=== PATIENT | male | born 1955 | race Caucasian/White ===

== ENCOUNTER 2020-08-01 14:19 | Inpatient (IN) | payer OTHER ==
[2020-08-01] MEDS ORDERED: ACETAMINOPHEN TAB 500 MG TAB PO STA (14:33)
[2020-08-01] MEDS ORDERED: SODIUM CHLORIDE 0.9% 500 ML 500 ML IV STA (14:35)
[2020-08-01] MEDS ORDERED: ONDANSETRON 4 MG/2 ML VIAL IVP STA (14:35)
--- NOTE | 2020-08-01 15:00 | ED ---
General Adult HPI - General Source: EMS Mode of arrival: EMS <Rachel Pfeiffer - Last Filed: 08/01/20 19:20> <ErikApple sal Josh - Last Filed: 08/03/20 14:55> - General Chief complaint: Syncope Stated complaint: Syncope Time Seen by Provider: 08/01/20 14:25 - History of Present Illness Initial comments: Patient is a 64-year-old male with history of hypertension, recent lung tumor removal, presenting to the emergency department via EMS after having a syncopal episode at home. Patient states he was laying in bed and got up to use the rest room when he had a syncopal episode. Patient is unsure if he hit his head or not. He is not on blood thinners. Patient states his family then helped into the restroom and back in his room and they called EMS. Patient was able to ambulate to the EMS stretcher. Patient is complaining of some nausea, no further complaints at this time. He denies having a headache, no chest pain, no abdominal pain. He does feel little short of breath. Patient states 2 weeks ago he had surgery at the [facility] to remove a right lung tumor. He states he has been recovering well from this just very fatigued. He denies feeling feverish or having any chills, no vomiting or diarrhea. He states his sister does have Covid but he has been staying away from her however they do live in the same house. Patient states he's also been dealing with low blood pressure as he is on blood pressure medication for hypertension but it's been dropping his blood pressure too low. He states he does not eat very much and does not drink a lot of water here. He denies any alcohol use. He states he was a former smoker. He has no further complaints at this time. Upon arrival to the ER, he is febrile to 100.2, blood pressure is 91/74, 93% on room air, pulse is 70. (Rachel Pfeiffer) - Related Data Home Medications Medication Instructions Recorded Confirmed Aspirin EC [Ecotrin Low Dose] 81 mg PO DAILY 08/01/20 08/01/20 Atorvastatin Calcium [Lipitor] 40 mg PO HS 08/01/20 08/01/20 Carvedilol [Coreg] 25 mg PO BID 08/01/20 08/01/20 Multivitamins, Thera [Multivitamin 1 tab PO DAILY 08/01/20 08/01/20 (formulary)] Omeprazole 40 mg PO BID PRN 08/01/20 08/01/20 amLODIPine [Norvasc] 10 mg PO DAILY 08/01/20 08/01/20 lisinopriL 40 mg PO HS 08/01/20 08/01/20 Allergies Allergy/AdvReac Type Severity Reaction Status Date / Time No Known Allergies Allergy Verified 08/01/20 16:40 Review of Systems ROS Other: All systems not noted in ROS Statement are negative. <Rachel Pfeiffer - Last Filed: 08/01/20 19:20> ROS Other: All systems not noted in ROS Statement are negative. <Apple Jarrell - Last Filed: 08/03/20 14:55> ROS Statement: Those systems with pertinent positive or pertinent negative responses have been documented in the HPI. Past Medical History Past Medical History: Hypertension Additional Past Medical History / Comment(s): lung cancer, History of Any Multi-Drug Resistant Organisms: None Reported Additional Past Surgical History / Comment(s): right lung cancer tumor removed, right shoulder surgery, Past Psychological History: No Psychological Hx Reported Smoking Status: Former smoker Past Alcohol Use History: None Reported Past Drug Use History: None Reported <Rachel Pfeiffer - Last Filed: 08/01/20 19:20> General Exam <Rachel Pfeiffer - Last Filed: 08/01/20 19:20> - General Exam Comments Initial Comments: GENERAL: Patient appears slightly disheveled, nontoxic and in no acute distress. HEAD: Atraumatic, normocephalic. There is no hematomas. No signs of basal skull fracture. EYES: Pupils equal round and reactive to light, extraocular movements intact, sclera anicteric, conjunctiva are normal. Eyelids were unremarkable. ENT: TMs normal, nares patent, oropharynx clear without exudates. Moist mucous membranes. NECK: Normal range of motion, supple without lymphadenopathy or JVD. LUNGS: Unlabored respirations. Breath sounds clear to auscultation bilaterally and equal. No wheezes rales or rhonchi. HEART: Regular rate and rhythm without murmurs, rubs or gallops. ABDOMEN: Soft, nontender, normoactive bowel sounds. No guarding, no rebound. No masses appreciated. : Deferred MUSCULOSKELETAL: Normal extremities with adequate strength and normal range of motion, no pitting or edema. No clubbing or cyanosis. NEUROLOGICAL: Patient is alert and oriented x 3. Motor and sensory are also intact. Cranial nerves II through XII grossly intact. Symmetrical smile. Normal speech. PSYCH: Normal mood, normal affect. SKIN: Warm, Dry, normal turgor, no rashes or lesions noted. (Rachel Pfeiffer) Course Vital Signs 08/01/20 08/01/20 08/01/20 14:22 14:37 15:46 Temperature 100.2 F H 99.5 F Pulse Rate 70 66 Respiratory 18 18 Rate Blood Pressure 91/74 104/70 Blood Pressure 106/90 [Right Arm Sitting] Blood Pressure 81/68 [Right Arm Standing] Blood Pressure 95/69 [Right Arm Supine] O2 Sat by Pulse 93 L 95 Oximetry 08/01/20 08/01/20 08/01/20 18:18 19:19 19:51 Temperature 98.2 F 97.5 F L Pulse Rate 66 60 Respiratory 18 18 Rate Blood Pressure 92/66 104/80 Blood Pressure [Right Arm Sitting] Blood Pressure [Right Arm Standing] Blood Pressure [Right Arm Supine] O2 Sat by Pulse 96 95 94 L Oximetry 08/01/20 08/01/20 08/01/20 20:00 22:15 23:29 Temperature Pulse Rate Respiratory Rate Blood Pressure Blood Pressure [Right Arm Sitting] Blood Pressure [Right Arm Standing] Blood Pressure [Right Arm Supine] O2 Sat by Pulse 95 97 97 Oximetry 08/02/20 06:06 Temperature Pulse Rate 60 Respiratory 18 Rate Blood Pressure 115/76 Blood Pressure [Right Arm Sitting] Blood Pressure [Right Arm Standing] Blood Pressure [Right Arm Supine] O2 Sat by Pulse 94 L Oximetry EKG Findings - EKG Comments: EKG Findings:: Sinus rhythm with first-degree AV block, left axis deviation, inferior infarct age undetermined, no signs of acute ischemia at this time. V entricular rate 66, NV interval 214, QT 404. No previous to compare. <Rachel Pfeiffer - Last Filed: 08/01/20 19:20> Medical Decision Making - Lab Data Result diagrams: 08/01/20 14:36 08/01/20 14:36 <Rachel Pfeiffer - Last Filed: 08/01/20 19:20> - Lab Data Result diagrams: 08/03/20 05:57 08/03/20 05:57 <Apple Jarrell - Last Filed: 08/03/20 14:55> - Medical Decision Making Patient is a 64-year-old male with history of hypertension, recent right lung cancer removal at the [facility], presenting via EMS after having a syncopal event at home. Patient did arrive febrile to 100.2, blood pressure was low in the 90s, 83% on room air. EKG reads sinus rhythm with first-degree block, no signs of acute ischemia. Orthopedics were positive as when he stood up his blood pressure dropped to 81/68. Laboratory normal white count, normal hemoglobin, d-dimer did come back elevated at 3.45, sodium slightly low at 133, potassium is 5.5. Kidney function is stable, LDH is elevated at 1000, CRP is 57 and rapid Covid is positive. CT of the brain and C-spine showed no acute event. Secondary to elevated d-dimer, I did do a CTA of the chest, reveals bilateral patchy groundglass opacities, no evidence for PEs. Patient was given fluids, Tylenol and Zofran. Since fever did improve to 99.5, his blood pressure still a lower side at 104/70, he states currently requiring 2 L of oxygen, 95%. Patient does not wear home O2. I feel he due to patient's recent lung procedure and recent Covid diagnosis, recommended admission for observation to continue to monitor his vital signs, and fluids. I will start him on steroids. Patient is in agreement with this plan of care. Case discussed with Dr. Jarrell. Patient accepted by Dr. Verdugo. (Rachel Pfeiffer) I was available for consultation in the emergency department. The history and physical exam were done by the midlevel provider. I was consulted for this patients care. I reviewed the case with the midlevel provider and based on their presentation of the patient, I agree with the assessment, medical decision making and plan of care as documented. Chart was dictated using [employer] dictation software. Attempts were made to correct any dictation errors however some typographical errors may persist. Patient was seen during a national state of emergency due to the Covid-19 pandemic. (Apple Jarrell) - Lab Data Lab Results 08/01/20 08/01/20 08/01/20 Range/Units 14:34 14:36 14:36 WBC 5.7 (3.8-10.6) k/uL RBC 4.98 (4.30-5.90) m/uL Hgb 15.5 (13.0-17.5) gm/dL Hct 45.0 (39.0-53.0) % MCV 90.4 (80.0-100.0) fL MCH 31.0 (25.0-35.0) pg MCHC 34.3 (31.0-37.0) g/dL RDW 13.8 (11.5-15.5) % Plt Count 243 (150-450) k/uL MPV 8.4 Neutrophils % 77 % Lymphocytes % 10 % Monocytes % 10 % Eosinophils % 0 % Basophils % 1 % Neutrophils # 4.4 (1.3-7.7) k/uL Lymphocytes # 0.6 L (1.0-4.8) k/uL Monocytes # 0.6 (0-1.0) k/uL Eosinophils # 0.0 (0-0.7) k/uL Basophils # 0.1 (0-0.2) k/uL PT 10.0 (9.0-12.0) sec INR 0.9 (<1.2) APTT 27.5 (22.0-30.0) sec D-Dimer 3.45 H (<0.60) mg/L FEU Sodium (137-145) mmol/L Potassium (3.5-5.1) mmol/L Chloride (98-107) mmol/L Carbon Dioxide (22-30) mmol/L Anion Gap mmol/L BUN (9-20) mg/dL Creatinine (0.66-1.25) mg/dL Est GFR (CKD-EPI)AfAm (>60 ml/min/1.73 sqM) Est GFR (CKD-EPI)NonAf (>60 ml/min/1.73 sqM) Glucose (74-99) mg/dL Plasma Lactic Acid Russell (0.7-2.0) mmol/L Calcium (8.4-10.2) mg/dL Magnesium (1.6-2.3) mg/dL Ferritin (22.0-322.0) ng/mL Total Bilirubin (0.2-1.3) mg/dL AST (17-59) U/L ALT (4-49) U/L Alkaline Phosphatase (38-126) U/L Lactate Dehydrogenase (313-618) U/L C-Reactive Protein (<10.0) mg/L Total Protein (6.3-8.2) g/dL Albumin (3.5-5.0) g/dL Procalcitonin (0.02-0.09) ng/mL Coronavirus (PCR) Detected A (Not Detectd) 08/01/20 08/01/20 08/01/20 Range/Units 14:36 14:36 14:36 WBC (3.8-10.6) k/uL RBC (4.30-5.90) m/uL Hgb (13.0-17.5) gm/dL Hct (39.0-53.0) % MCV (80.0-100.0) fL MCH (25.0-35.0) pg MCHC (31.0-37.0) g/dL RDW (11.5-15.5) % Plt Count (150-450) k/uL MPV Neutrophils % % Lymphocytes % % Monocytes % % Eosinophils % % Basophils % % Neutrophils # (1.3-7.7) k/uL Lymphocytes # (1.0-4.8) k/uL Monocytes # (0-1.0) k/uL Eosinophils # (0-0.7) k/uL Basophils # (0-0.2) k/uL PT (9.0-12.0) sec INR (<1.2) APTT (22.0-30.0) sec D-Dimer (<0.60) mg/L FEU Sodium 133 L (137-145) mmol/L Potassium 5.5 H (3.5-5.1) mmol/L Chloride 100 (98-107) mmol/L Carbon Dioxide 24 (22-30) mmol/L Anion Gap 9 mmol/L BUN 20 (9-20) mg/dL Creatinine 1.12 (0.66-1.25) mg/dL Est GFR (CKD-EPI)AfAm 80 (>60 ml/min/1.73 sqM) Est GFR (CKD-EPI)NonAf 69 (>60 ml/min/1.73 sqM) Glucose 141 H (74-99) mg/dL Plasma Lactic Acid Russell 1.3 (0.7-2.0) mmol/L Calcium 8.7 (8.4-10.2) mg/dL Magnesium 2.1 (1.6-2.3) mg/dL Ferritin 818.0 H (22.0-322.0) ng/mL Total Bilirubin 0.9 (0.2-1.3) mg/dL AST 56 (17-59) U/L ALT 37 (4-49) U/L Alkaline Phosphatase 98 (38-126) U/L Lactate Dehydrogenase 1044 H (313-618) U/L C-Reactive Protein 57.4 H (<10.0) mg/L Total Protein 6.9 (6.3-8.2) g/dL Albumin 3.5 (3.5-5.0) g/dL Procalcitonin 0.09 (0.02-0.09) ng/mL Coronavirus (PCR) (Not Detectd) Disposition Decision Date: 08/01/20 Decision Time: 17:24 <Rachel Pfeiffer - Last Filed: 08/01/20 19:20> <Apple Jarrell - Last Filed: 08/03/20 14:55> Clinical Impression: Dehydration, Syncope and collapse, Pneumonia due to COVID-19 virus Disposition: ADMITTED IP TO THIS HOSP Condition: Stable
[2020-08-01 15:02] LABS: Basophils # (A) 0.1 k/uL (0-0.2); Basophils % (A) 1 %; Eosinophils % (A) 0 %; HGB 15.5 gm/dL (13.0-17.5); Lymphocytes # (A) 0.6 k/uL (1.0-4.8); Lymphocytes % (A) 10 %; MCHC 34.3 g/dL (31.0-37.0); MCV 90.4 fL (80.0-100.0); Mean Platelet Volume 8.4; Monocytes # (A) 0.6 k/uL (0-1.0); Monocytes % (A) 10 %; Neutrophils # (A) 4.4 k/uL (1.3-7.7); Neutrophils % (A) 77 %; Platelet Count 243 k/uL (150-450); RBC 4.98 m/uL (4.30-5.90); RDW 13.8 % (11.5-15.5); WBC 5.7 k/uL (3.8-10.6)
[2020-08-01 15:18] LABS: Albumin 3.5 g/dL (3.5-5.0); C Reactive Protein 57.4 mg/L (<10.0); Calcium 8.7 mg/dL (8.4-10.2); Magnesium 2.1 mg/dL (1.6-2.3); Total Bilirubin 0.9 mg/dL (0.2-1.3); Total Protein 6.9 g/dL (6.3-8.2)
[2020-08-01 15:19] LABS: INR 0.9 (<1.2); Partial Thromboplastin Time 27.5 sec (22.0-30.0)
[2020-08-01 15:31] LABS: D-Dimer 3.45 mg/L FEU (<0.60)
[2020-08-01 15:38] LABS: Potassium 5.5 mmol/L (3.5-5.1)
--- NOTE | 2020-08-01 15:47 | CT ---
EXAMINATION TYPE: CT brain cspine wo con DATE OF EXAM: 08/01/2020 COMPARISON: None available. HISTORY: Syncopal episode today. CT DLP: 1371.6 mGycm Automated exposure control for dose reduction was used. TECHNIQUE: CT scan of the head and cervical spine are performed without contrast. FINDINGS: There is no acute intracranial hemorrhage, mass effect, or midline shift identified. The ventricles and sulci are within normal limits in size. The globes are intact and the visualized sin uses are clear. Cervical spine is visualized in its entirety from C1 through upper thoracic levels and demonstrates s atisfactory alignment without evidence of acute fracture or dislocation. Prevertebral soft tissue ap pears within normal limits. The C1-C2 articulation is unremarkable. There is moderate C5-C6 spondyl osis. Chronic versus congenital changes of T1 spinous process seen. The visualized lung apices demonstrate right apical pleural thickening and scarring with mild calcifi cation. IMPRESSION: 1. There is no acute fracture or dislocation evident in the cervical spine. 2. No acute intracranial hemorrhage, mass effect, or midline shift is seen.
--- NOTE | 2020-08-01 16:05 | XR ---
EXAMINATION TYPE: XR chest 2V DATE OF EXAM: 08/01/2020 COMPARISON: None available. HISTORY: Shortness of breath. TECHNIQUE: Frontal and lateral views of the chest are obtained. FINDINGS: There is small left basilar opacity. No pleural effusion, or pneumothorax seen. Right uppe r lobe post surgical changes are seen. The cardiac silhouette size is within normal limits. The os seous structures are intact. Left pacemaker. IMPRESSION: Left basilar opacity may represent atelectasis versus overlapping soft tissue artifact. Attention on pending CT.
--- NOTE | 2020-08-01 16:52 | CT ---
EXAMINATION TYPE: CT chest angio for PE DATE OF EXAM: 08/01/2020 COMPARISON: Same-day radiographs. HISTORY: Recent right lung cancer removed. Dyspnea, covid and elevated d-dimer. CT DLP: 298 mGycm Automated exposure control for dose reduction was used. CONTRAST: CT Chest for pulmonary embolism performed with with IV Contrast, patient injected with 100 mL of Isov ue 370. FINDINGS: LUNGS: There are right greater than left scattered moderate, patchy groundglass opacities in predomin antly in the mid to lower lungs. Additional small to moderate consolidation in the right upper lobe a nd lingula. There also right upper lobe post surgical changes with mild scarring. MEDIASTINUM: There is satisfactory enhancement of the pulmonary artery and its branches, there is no CT evidence for pulmonary embolism. There are enlarged mediastinal and right hilar lymph nodes, dillon uring up to 13 mm short axis. No pericardial effusion is seen. OTHER: Moderate thickening of bilateral adrenal glands. There are scattered several low attenuating hepatic lesions. IMPRESSION: Bilateral patchy ground glass opacities with small to moderate consolidations, concerning for Covid p neumonia. Prior right upper lobe post surgical changes with scarring. Also mediastinal and hilar lymphadenopath y. Recommend follow-up and correlation with prior images for stability. Nonspecific several small hepatic lesions and adrenal gland thickening. Recommend correlation with hi story and prior imaging. No acute PE.
[2020-08-01] MEDS ORDERED: ONDANSETRON 4 MG/2 ML VIAL IVP PRN (18:23)
[2020-08-01] MEDS ORDERED: ACETAMINOPHEN TAB 325 MG TAB PO PRN (18:23)
[2020-08-01] MEDS ORDERED: NALOXONE 0.4 MG/ML 1 ML VIAL IV PRN (18:23)
[2020-08-01] MEDS: DEXAMETHASONE SOD PHOSPHATE 10 MG/ML 1 ML VIAL IV SCH (19:53)
[2020-08-01] MEDS: SODIUM CHLORIDE 0.9% 1,000 ML IV SCH (19:54)
[2020-08-01] MEDS ORDERED: PANTOPRAZOLE 40 MG TABLET PO PRN (20:19)
--- NOTE | 2020-08-01 20:20 | P.HPIM ---
History of Present Illness H&P Date: 08/01/20 Patient is a 64-year-old male with a PMH of lung CA with recent tumor removal (2 weeks ago at the [facility]), s/p pacemaker placement, and hypertension who presented to the emergency room after syncopal episode. The patient notes that over the past 4-5 days he has not been feeling well. He reports anorexia and fatigue. Notes that he was laying in bed and had gotten up to use the restroom when the next thing he knew he woke up on the ground. The patient's sister who lives with him heard the fall and activated EMS. She reported that he was unconscious for roughly 10 minutes. He reportedly had no shaking movements, tongue bites, or bladder incontinence. He denied post ictal confusion. The patient reported no obvious injuries from the fall. Reports no prior history of seizure disorder. Reported a similar or syncopal episode in May 2018 where he suffered a right shoulder injury and subsequent contracture of his right fingers. Reports that no cause for the syncope was identified. He denied any trauma or pain at the time of interview. He was able to ambulate to the EMS stretcher upon their arrival at the scene. The patient notes that he has been at home recovering from his tumor removal and was informed it was localized with no metastatic spread at the time. Reports that his sister does have COVID. He also notes that he has not been eating or drinking much over the past week. He is unable to identify a cause for anorexia. He denied additional complaints. Denied chest pain, shortness of breath, nausea, vomiting, diarrhea. Denied headaches, visual disturbances, weakness, numbness, tingling, neck pain, or hip pain. Upon arrival to the emergency room, the patient's vitals were BP 91/74, temp 100.2, pulse 70, and SpO2 of 93% on room air. A CT brain and cervical spine without contrast was negative for acute abnormalities. A chest CTA was consistent with Covid pneumonia but also revealed mediastinal and hilar lymphadenopathy along with multiple small hepatic lesions and adrenal gland thickening. EKG revealed sinus rhythm with first-degree AV block and left axis deviation at 66 bpm. Laboratory evaluation was remarkable for coronavirus PCR positive, d-dimer 3.45, sodium 133, LDH 1044, and CRP 57.4. Review of Systems Pertinent positives and negatives as discussed in HPI, a complete review of systems was performed and all other systems are negative. Past Medical History Past Medical History: Hypertension Additional Past Medical History / Comment(s): lung cancer, History of Any Multi-Drug Resistant Organisms: None Reported Additional Past Surgical History / Comment(s): right lung cancer tumor removed, right shoulder surgery, Past Psychological History: No Psychological Hx Reported Smoking Status: Former smoker Past Alcohol Use History: None Reported Past Drug Use History: None Reported Medications and Allergies Home Medications Medication Instructions Recorded Confirmed Type Aspirin EC [Ecotrin Low Dose] 81 mg PO DAILY 08/01/20 08/01/20 History Atorvastatin Calcium [Lipitor] 40 mg PO HS 08/01/20 08/01/20 History Carvedilol [Coreg] 25 mg PO BID 08/01/20 08/01/20 History Multivitamins, Thera [Multivitamin 1 tab PO DAILY 08/01/20 08/01/20 History (formulary)] Omeprazole 40 mg PO BID PRN 08/01/20 08/01/20 History amLODIPine [Norvasc] 10 mg PO DAILY 08/01/20 08/01/20 History lisinopriL 40 mg PO HS 08/01/20 08/01/20 History Allergies Allergy/AdvReac Type Severity Reaction Status Date / Time No Known Allergies Allergy Verified 08/01/20 16:40 Physical Exam Vitals: Vital Signs Temp Pulse Resp BP BP BP BP 08/01/20 19:51 97.5 F L 60 18 104/80 08/01/20 19:19 08/01/20 18:18 98.2 F 66 18 92/66 08/01/20 15:46 99.5 F 66 18 104/70 08/01/20 14:37 106/90 81/68 95/69 08/01/20 14:22 100.2 F H 70 18 91/74 Pulse Ox 08/01/20 19:51 94 L 08/01/20 19:19 95 08/01/20 18:18 96 08/01/20 15:46 95 08/01/20 14:37 08/01/20 14:22 93 L Intake and Output 08/01/20 08/01/20 08/01/20 06:59 14:59 22:59 Other: Weight 76.657 kg General: non toxic, no distress, appears at stated age, normal weight Derm: no unusual rashes/lesions no unusual ecchymoses, warm, dry Head: atraumatic, normocephalic, symmetric Eyes: EOMI, no lid lag, anicteric sclera, pupils equal round reactive to light ENT: Nose and ears atraumatic, no thrush, no pharyngeal erythema Neck: No thyromegaly, no cervical lymphadenopathy, trachea midline, supple Mouth: no lip lesion, mucus membranes dry Cardiovascular: S1S2 reg, no murmur, positive posterior tibial pulse bilateral, no edema, capillary refill less than 2 seconds Lungs: CTA bilateral, no rhonchi, no rales , no accessory muscle use Abdominal: soft, nontender to palpation, no guarding, no appreciable orga nomegaly, normal bowel sounds Ext: no gross muscle atrophy, muscle strength 5 out of 5 in all 4 extremities grossly, right multiple fingers contracture noted Neuro: CN II-XI grossly intact, light touch intact all 4 extremities, finger to nose within normal limits, Psych: Alert, oriented, appropriate affect Results CBC & Chem 7: 08/01/20 14:36 08/01/20 14:36 Labs: Abnormal Lab Results - Last 24 Hours (Table) 08/01/20 08/01/20 08/01/20 Range/Units 14:34 14:36 14:36 Lymphocytes # 0.6 L (1.0-4.8) k/uL D-Dimer 3.45 H (<0.60) mg/L FEU Sodium (137-145) mmol/L Potassium (3.5-5.1) mmol/L Glucose (74-99) mg/dL Lactate Dehydrogenase (313-618) U/L C-Reactive Protein (<10.0) mg/L Coronavirus (PCR) Detected A (Not Detectd) 08/01/20 Range/Units 14:36 Lymphocytes # (1.0-4.8) k/uL D-Dimer (<0.60) mg/L FEU Sodium 133 L (137-145) mmol/L Potassium 5.5 H (3.5-5.1) mmol/L Glucose 141 H (74-99) mg/dL Lactate Dehydrogenase 1044 H (313-618) U/L C-Reactive Protein 57.4 H (<10.0) mg/L Coronavirus (PCR) (Not Detectd) Assessment and Plan Plan: Syncope, likely orthostatic in setting of hypotension from poor oral intake -Orthostatic vital signs positive in ED -C/w IVFs -Cardiac monitoring for now in setting of history of pacemaker: patient unaware of why pacemaker was placed -Fall precautions -Lactic acid wnl -Hold home antihypertensives COVID-19 pneumonitis -Decadron -Zinc, Vit C, Melatonin, Vit D -C/w IVFs -Monitor inflammatory markers Mediastinal and hilar lymphadenopathy with hepatic lesions and recent lung tumor removal -Patient notes he was informed that there was no metastatic spread of the malignancy -Patient will benefit from outpatient follow-up at the [facility] for further workup Hyponatremia -Due to poor oral intake -Continue with IV fluids and monitor for now DVT prophylaxis -Lovenox The patient is admitted with an anticipated greater than 2 midnight stay for evaluation of COVID CODE STATUS: Full Code Discussed with: Patient Anticipated discharge date: 2-[address]: Home A total of 40 minutes was spent on the care of this complex patient more than 50% of the time was spent in counseling and care coordination.
[2020-08-01] MEDS: ATORVASTATIN 40 MG TAB PO SCH (22:27)
[2020-08-01] MEDS: MELATONIN 5 MG TABLET PO SCH (22:27)
[2020-08-02] MEDS: SODIUM CHLORIDE 0.9% 1,000 ML IV SCH ×2 (07:26→20:10)
[2020-08-02] MEDS: ASCORBIC ACID 500 MG TAB PO SCH (07:31)
[2020-08-02] MEDS: ENOXAPARIN 40 MG/0.4 ML SYRINGE SQ SCH (07:31)
[2020-08-02] MEDS: ZINC SULFATE 220 MG CAP PO SCH (07:32)
[2020-08-02] MEDS: MULTIVITAMINS, THERA 1 EACH TAB PO SCH (07:32)
[2020-08-02] MEDS: ASPIRIN 81 MG PO SCH (07:32)
[2020-08-02] MEDS: CHOLECALCIFEROL 25 MCG (1000 IU) TABLET PO SCH (07:32)
[2020-08-02] MEDS: DEXAMETHASONE SOD PHOSPHATE 10 MG/ML 1 ML VIAL IV SCH (07:32)
[2020-08-02 09:06] LABS: African American GFR (CKD) 81.8 (60.0-200.0); Anion Gap 6.5 mmol/L (4.00-12.00); BUN/Creat Ratio 19.09 Ratio (12.00-20.00); Calcium 8.5 mg/dL (8.7-10.3); Carbon Dioxide 25.5 mmol/L (21.6-31.8); Non-African American GFR(CKD) 70.6 (60.0-200.0); Potassium 5.2 mmol/L (3.5-5.5)
--- NOTE | 2020-08-02 11:50 | P.PN ---
Subjective Progress Note Date: 08/02/20 Patient is doing fairly well today. He denies any shortness of breath or dizziness. No acute events overnight reported by nursing staff. Objective - Vital Signs Vital signs: Vital Signs Temp 97.7 F 08/02/20 09:33 Pulse 67 08/02/20 09:33 Resp 18 08/02/20 09:33 BP 112/73 08/02/20 09:33 Pulse Ox 96 08/02/20 09:33 Intake & Output 08/01/20 08/02/20 08/02/20 18:59 06:59 18:59 Weight 76.657 kg 76.657 kg - Exam General: The patient is awake and alert, in no distress Eye: there is normal conjunctiva bilaterally. Neck: The neck is supple, there is no JVD. Cardiovascular: Normal S1-S2, no S3-S4, no murmurs. Respiratory: Lungs clear to auscultation bilaterally Gastrointestinal: Abdomen is soft, nontender Musculoskeletal: There is no pedal edema. Neurological:. Speech is normal. Skin: Skin is warm and dry - Labs CBC & Chem 7: 08/01/20 14:36 08/02/20 05:51 Labs: Abnormal Lab Results - Last 24 Hours (Table) 08/01/20 08/01/20 08/01/20 Range/Units 14:34 14:36 14:36 Lymphocytes # 0.6 L (1.0-4.8) k/uL D-Dimer 3.45 H (<0.60) mg/L FEU Sodium (137-145) mmol/L Potassium (3.5-5.1) mmol/L Glucose (74-99) mg/dL Calcium (8.7-10.3) mg/dL Ferritin (22.0-322.0) ng/mL Lactate Dehydrogenase (313-618) U/L C-Reactive Protein (<10.0) mg/L Coronavirus (PCR) Detected A (Not Detectd) 08/01/20 08/02/20 Range/Units 14:36 05:51 Lymphocytes # (1.0-4.8) k/uL D-Dimer (<0.60) mg/L FEU Sodium 133 L (137-145) mmol/L Potassium 5.5 H (3.5-5.1) mmol/L Glucose 141 H 155 H (74-99) mg/dL Calcium 8.5 L (8.7-10.3) mg/dL Ferritin 818.0 H (22.0-322.0) ng/mL Lactate Dehydrogenase 1044 H (313-618) U/L C-Reactive Protein 57.4 H (<10.0) mg/L Coronavirus (PCR) (Not Detectd) Assessment and Plan Assessment: This is a 64-year-old male with very complex past medical history noted below who presented to the emergency room after a syncopal episode. Patient was evaluated in the emergency room and currently admitted to the hospital for further management of his medical problems noted below. 1. Syncopal episode, most likely secondary to dehydration and hypotension. Orthostatic blood pressure positive in the ER. Patient received IV fluid hydration. Awaiting repeat orthostatic. No events on lunchroom monitor. I would obtain echocardiogram for further evaluation. Continue fall precaution. 2. COVID-19 pneumonia, started on Decadron day #2. Vitamin C, vitamin D, zinc, and melatonin daily. Bilateral patchy groundglass opacities noted on CT. We will continue to monitor closely. Repeat inflammatory markers in the morning. 3. Acute hypoxic respiratory failure currently on 2 L of oxygen via nasal cannula. Wean off O2 as tolerated. 4. Hypovolemic hyponatremia: Resolved with IV fluid hydration 5. Essential hypertension, on home medications on hold secondary to hypotension and syncope on presentation. I will continue to monitor blood pressure closely. 6. History of lung cancer status post tumor removal approximately 2 weeks ago 7. DVT prophylaxis with subcu Lovenox
--- NOTE | 2020-08-02 13:08 | P.CNPUL ---
History of Present Illness Consult date: 08/02/20 Reason for consult: dyspnea, COPD History of present illness: 64-year-old male patient, known history of a COPD, known history of lung cancer and the patient is undergone a recent robotic-assisted right upper lobe resection at the [facility] details of the surgery is not available and the staging is not available and the type of lung cancer is not available at this point in time., came into the hospital after having a syncopal episode. He has been noted to feel sick over the past few days. He was having fatigue and diminished appetite. He was laying in bed all the time. His sister lives with him heard that he fell and EMS was activated. The patient was found to be unconscious for roughly 10 minutes. No seizure activity was noted. He did have a similar syncopal episode back in May 2018. No reported trauma to the head. He was brought into the hospital. Further testing showed that the patient had a positive COVID 19. . At time of arrival to the emergency, his BP was 97/74 and he was running a low-grade fever with a temperature 100.2 with a pulse of 70 and his pulse ox was 93%. He was further investigated with a CAT scan of the brain and cervical spine that showed no acute abnormalities. He had a chest x-ray that showed hyperinflation COPD and there was a left anterior chest pacemaker in place. CT angiogram showed no evidence of any pulmonary embolism. There is a right upper lobe postsurgical scarring in addition to some vague scattered groundglass pulmonary infiltrates bilaterally consistent with Covid 19 related pneumonia. He also had some mediastinal lymphadenopathy involving the mediastinum and the right hilar area. Apparently his cancer treatment was done through the [facility]. He is currently having a d-dimer of 3.45, his LDH level was 1044, his CRP level was 57. His pulse ox is 96% of these is approximately nasal cannula. He is currently on Decadron 6 mg IV. He is also placed on combination of vitamin C, vitamin D and zinc. IV fluids at 75 mL an hour. Note that the exact onset of his symptoms a lot. As the patient is very poor historian. It's likely the patient got his infection postop at the hospital. Review of Systems Constitutional: Reports fatigue, Reports poor appetite, Reports weakness Eyes: denies as per HPI, denies blurred vision, denies bulging eye, denies decreased vision, denies diplopia, denies discharge, denies dry eye, denies irritation, denies itching, denies pain, denies photophobia, denies loss of peripheral vision, denies loss of vision, denies tunnel vision/blind spots Ears: deny: decreased hearing, ear discharge, earache, tinnitus Ears, nose, mouth and throat: Reports as per HPI Breasts: absent: as per HPI, gynecomastia Cardiovascular: Reports decreased exercise tolerance, Reports dyspnea on exertion Respiratory: Reports as per HPI Gastrointestinal: Reports as per HPI Genitourinary: Reports as per HPI Musculoskeletal: absent: ankle pain, ankle stiffness, ankle swelling Integumentary: Reports as per HPI Neurological: Reports as per HPI, Reports weakness Psychiatric: Reports as per HPI Endocrine: Reports as per HPI, Reports fatigue Hematologic/Lymphatic: Reports as per HPI Allergic/Immunologic: Reports as per HPI Past Medical History Past Medical History: Cancer, COPD, Hyperlipidemia, Hypertension Additional Past Medical History / Comment(s): lung cancer, recent right upper lobe resection, COPD, pacemaker insertion 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 History of Any Multi-Drug Resistant Organisms: None Reported Past Surgical History: Pacemaker Additional Past Surgical History / Comment(s): right lung cancer tumor removed, right shoulder surgery, Past Anesthesia/Blood Transfusion Reactions: No Reported Reaction Type of Cardiac Device: Permanent Pacemaker Device Placement Date:: 2015 Past Psychological History: No Psychological Hx Reported Smoking Status: Former smoker Past Alcohol Use History: None Reported Past Drug Use History: None Reported Medications and Allergies Home Medications Medication Instructions Recorded Confirmed Type Aspirin EC [Ecotrin Low Dose] 81 mg PO DAILY 08/01/20 08/01/20 History Atorvastatin Calcium [Lipitor] 40 mg PO HS 08/01/20 08/01/20 History Carvedilol [Coreg] 25 mg PO BID 08/01/20 08/01/20 History Multivitamins, Thera [Multivitamin 1 tab PO DAILY 08/01/20 08/01/20 History (formulary)] Omeprazole 40 mg PO BID PRN 08/01/20 08/01/20 History amLODIPine [Norvasc] 10 mg PO DAILY 08/01/20 08/01/20 History lisinopriL 40 mg PO HS 08/01/20 08/01/20 History Allergies Allergy/AdvReac Type Severity Reaction Status Date / Time No Known Allergies Allergy Verified 08/01/20 16:40 Physical Exam Vitals: Vital Signs Temp Pulse Pulse Resp BP BP BP 08/02/20 09:33 97.7 F 67 18 112/73 08/02/20 06:45 97.5 F L 61 19 08/02/20 06:06 60 18 115/76 08/01/20 23:29 08/01/20 22:15 08/01/20 20:00 08/01/20 19:51 97.5 F L 60 18 104/80 08/01/20 19:19 08/01/20 18:18 98.2 F 66 18 92/66 08/01/20 15:46 99.5 F 66 18 104/70 08/01/20 14:37 106/90 81/68 08/01/20 14:22 100.2 F H 70 18 91/74 BP Pulse Ox 08/02/20 09:33 96 08/02/20 06:45 116/77 97 08/02/20 06:06 94 L 08/01/20 23:29 97 08/01/20 22:15 97 08/01/20 20:00 95 08/01/20 19:51 94 L 08/01/20 19:19 95 08/01/20 18:18 96 08/01/20 15:46 95 08/01/20 14:37 95/69 08/01/20 14:22 93 L Intake and Output 08/01/20 08/02/20 08/02/20 22:59 06:59 14:59 Other: Weight 76.657 kg 3 L to maintain a saturation above 90%, calm comfortable likely distress awake and alert, very poor historian Head exam was generally normal. There was no scleral icterus or corneal arcus. Mucous membranes were moist. Neck was supple and without jugular venous distension, thyromegaly, or carotid bruits. Carotids were easily palpable bilaterally. There was no adenopathy. Lungs sounds are diminished and there is some scattered crackles in the lung bases bilaterally. Surgical site in right anterior upper chest areas dry clean and intact Cardiac exam revealed the PMI to be normally situated and sized. The rhythm was regular and no extrasystoles were noted during several minutes of auscultation. The first and second heart sounds were normal and physiologic splitting of the second heart sound was noted. There were no murmurs, rubs, clicks, or gallops. Abdominal exam revealed normal bowel sounds. The abdomen was soft, non-tender, and without masses, organomegaly, or appreciable enlargement of the abdominal aorta. Extremities revealed some chronic contracture of the right upper extremity probably related to an old brachial plexus fracture or injury. No cyanosis or clubbing and the rest of the extremities. Neurologically, the patient is awake and alert and the patient does not have any focal neurological deficit. Cranial nerves are essentially intact. Examination of the skin revealed no evidence of significant rashes, suspicious appearing nevi or other concerning lesions. Results - Laboratory Findings CBC and BMP: 08/01/20 14:36 08/02/20 05:51 PT/INR, D-dimer PT 10.0 sec (9.0-12.0) 08/01/20 14:36 INR 0.9 (<1.2) 08/01/20 14:36 D-Dimer 3.45 mg/L FEU (<0.60) H 08/01/20 14:36 Abnormal lab findings: Abnormal Labs 08/01/20 08/01/20 08/01/20 14:34 14:36 14:36 Lymphocytes # 0.6 L D-Dimer 3.45 H Sodium Potassium Glucose Calcium Ferritin Lactate Dehydrogenase C-Reactive Protein Coronavirus (PCR) Detected A 08/01/20 08/02/20 14:36 05:51 Lymphocytes # D-Dimer Sodium 133 L Potassium 5.5 H Glucose 141 H 155 H Calcium 8.5 L Ferritin 818.0 H Lactate Dehydrogenase 1044 H C-Reactive Protein 57.4 H Coronavirus (PCR) - Diagnostic Findings Chest x-ray: image reviewed CT scan - chest: image reviewed Assessment and Plan Plan: 1 acute Covid 19 related pneumonia. The patient is a very poor historian. The exact timing of symptom onset is not clear to me. The patient came in yesterday because of generalized weakness and fatigue and diminished appetite and weakness and had a bout of syncope. He tested positive for the viral infection. He was in the hospital in [facility] when he underwent a right upper lobe resection for underlying lung cancer. Is likely that the patient could've contracted the virus in the hospital postop yet this is not certain. 2 acute hypoxic respiratory failure currently on 3 L of oxygen by nasal cannula with a pulse of 76% 3 low-grade fever, currently afebrile 4 COPD 5 history of lung cancer with a previous right upper lobe resection, this was done at the [facility] in the [place]. Exact type and the staging of the lung cancer is not available to us at this point in time 6 syncope with a negative CAT scan of the head and neck 7 hypertension 8 hyperlipidemia 9 history of pacemaker insertion the exact cause is not clear 10 elevated inflammatory markers including LDH and CRP and mild elevation of the d-dimer. 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 Plan I think the patient should be started on a combination of Decadron and the REM. As mentioned, the exact timing of the symptom onset is not clear. N evertheless, the patient should be given the benefit of the doubt and be treated with REM which would shorten the patient's symptoms duration. Continue Lovenox for DVT prophylaxis Keep oxygen at 3 L per minute nasal cannula Continue fluids obtain records from the [facility] regarding details of his previous lung cancer and the surgery and the staging.
[2020-08-02] MEDS ORDERED: REMDESIVIR 200 MG in SODIUM CHLORIDE 0.9% 250 ML IVPB ONE (14:00)
[2020-08-02] MEDS: ATORVASTATIN 40 MG TAB PO SCH (20:10)
[2020-08-02] MEDS: MELATONIN 5 MG TABLET PO SCH (20:10)
[2020-08-03 08:46] LABS: Basophils # (A) 0.03 X 10*3/uL (0.00-0.10); Basophils % (A) 0.2 %; Eosinophils # (A) 0 X 10*3/uL (0.04-0.35); Eosinophils % (A) 0 %; HCT 44.7 % (39.6-50.0); HGB 14.5 g/dL (13.0-17.0); Lymphocytes # (A) 1.14 X 10*3/uL (0.90-5.00); Lymphocytes % (A) 9.1 %; MCH 30.8 pg (27.0-32.0); MCHC 32.4 g/dL (32.0-37.0); MCV 94.9 fL (80.0-97.0); Mean Platelet Volume 10.8 fL (9.5-12.2); Monocytes # (A) 1.13 X 10*3/uL (0.20-1.00); Neutrophils # (A) 10.09 X 10*3/uL (1.80-7.70); Neutrophils % (A) 80.9 %; Platelet Count 351 X 10*3/uL (140-440); RBC 4.71 X 10*6/uL (4.40-5.60); RDW 14.1 % (11.5-14.5); WBC 12.49 X 10*3/uL (4.50-10.00)
[2020-08-03] MEDS: MULTIVITAMINS, THERA 1 EACH TAB PO SCH (09:26)
[2020-08-03] MEDS: ZINC SULFATE 220 MG CAP PO SCH (09:26)
[2020-08-03] MEDS: ASPIRIN 81 MG PO SCH (09:26)
[2020-08-03] MEDS: ENOXAPARIN 40 MG/0.4 ML SYRINGE SQ SCH (09:26)
[2020-08-03] MEDS: CHOLECALCIFEROL 25 MCG (1000 IU) TABLET PO SCH (09:27)
[2020-08-03] MEDS: ASCORBIC ACID 500 MG TAB PO SCH (09:27)
[2020-08-03] MEDS: DEXAMETHASONE SOD PHOSPHATE 10 MG/ML 1 ML VIAL IV SCH (09:27)
[2020-08-03 12:55] LABS: African American GFR (CKD) 91.8 (60.0-200.0); Anion Gap 4.4 mmol/L (4.00-12.00); C Reactive Protein 3.2 mg/dL (0.0-0.8); Calcium 8.8 mg/dL (8.7-10.3); Carbon Dioxide 27.6 mmol/L (21.6-31.8); Non-African American GFR(CKD) 79.2 (60.0-200.0); Potassium 5.4 mmol/L (3.5-5.5)
--- NOTE | 2020-08-03 13:44 | P.PN ---
Objective - Vital Signs Vital signs: Vital Signs Temp 97.6 F 08/03/20 10:00 Pulse 69 08/03/20 10:00 Resp 18 08/03/20 10:00 BP 162/91 08/03/20 10:00 Pulse Ox 96 08/03/20 10:00 Intake & Output 08/02/20 08/03/20 08/03/20 18:59 06:59 18:59 Weight 76.657 kg Other: # Voids 3 3 - Labs CBC & Chem 7: 08/03/20 05:57 08/03/20 05:57 Labs: Abnormal Lab Results - Last 24 Hours (Table) 08/03/20 08/03/20 Range/Units 05:57 05:57 WBC 12.49 H (4.50-10.00) X 10*3/uL Immature Gran # 0.10 H (0.00-0.04) X 10*3/uL Neutrophils # 10.09 H (1.80-7.70) X 10*3/uL Monocytes # 1.13 H (0.20-1.00) X 10*3/uL Eosinophils # 0 L (0.04-0.35) X 10*3/uL BUN/Creatinine Ratio 23.00 H (12.00-20.00) Ratio Glucose 134 H (70-110) mg/dL Lactate Dehydrogenase 275 H (120-246) U/L C-Reactive Protein 3.2 H (0.0-0.8) mg/dL Microbiology - Last 24 Hours (Table) 08/01/20 15:44 Blood Culture - Preliminary Blood No Growth after 24 hours 08/01/20 15:44 Blood Culture - Preliminary Blood No Growth after 24 hours Assessment and Plan Assessment: This is a 64-year-old male with very complex past medical history noted below who presented to the emergency room after a syncopal episode. Patient was evaluated in the emergency room and currently admitted to the hospital for further management of his medical problems noted below. 1. Syncopal episode, most likely secondary to dehydration and hypotension. Orthostatic blood pressure positive in the ER. Patient received IV fluid hydration. Repeat orthostatic blood pressure checked and negative. No events on quality tester. I would obtain echocardiogram for further evaluation. Continue fall precaution. 2. COVID-19 pneumonia, started on Decadron day #3. Remdesivir date #2. Vitamin C, vitamin D, zinc, and melatonin daily. Bilateral patchy groundglass opacities noted on CT. We will continue to monitor closely. Repeat inf lammatory markers in the morning. Inflammatory markers improved significantly 3. Acute hypoxic respiratory failure currently on 2 L of oxygen via nasal cannula. Wean off O2 as tolerated. 4. Hypovolemic hyponatremia: Resolved with IV fluid hydration 5. Essential hypertension, home medications held since admission secondary to hypotension. Blood pressure improving. I would resume Coreg today and continue to monitor closely. Continue to hold lisinopril and amlodipine for now. 6. History of lung cancer status post tumor removal approximately 2 weeks ago 7. DVT prophylaxis with subcu Lovenox
[2020-08-03] MEDS: carvediloL 12.5 MG TAB PO SCH ×2 (15:58→20:41)
[2020-08-03] MEDS: REMDESIVIR 100 MG in SODIUM CHLORIDE 0.9% 250 ML IVPB SCH (15:58)
--- NOTE | 2020-08-03 16:49 | P.PN ---
Subjective Progress Note Date: 08/03/20 Principal diagnosis: CoVID 19 pneumonia 64-year-old male patient, known history of a COPD, known history of lung cancer and the patient is undergone a recent robotic-assisted right upper lobe resection at the [facility] details of the surgery is not available and the staging is not available and the type of lung cancer is not available at this point in time., came into the hospital after having a syncopal episode. He has been noted to feel sick over the past few days. He was having fatigue and diminished appetite. He was laying in bed all the time. His sister lives with him heard that he fell and EMS was activated. The patient was found to be unconscious for roughly 10 minutes. No seizure activity was noted. He did have a similar syncopal episode back in May 2018. No reported trauma to the head. He was brought into the hospital. Further testing showed that the patient had a positive COVID 19. . At time of arrival to the emergency, his BP was 97/74 and he was running a low-grade fever with a temperature 100.2 with a pulse of 70 and his pulse ox was 93%. He was further investigated with a CAT scan of the brain and cervical spine that showed no acute abnormalities. He had a chest x-ray that showed hyperinflation COPD and there was a left anterior chest pacemaker in place. CT angiogram showed no evidence of any pulmonary embolism. There is a right upper lobe postsurgical scarring in addition to some vague scattered groundglass pulmonary infiltrates bilaterally consistent with Covid 19 related pneumonia. He also had some mediastinal lymphadenopathy involving the mediastinum and the right hilar area. Apparently his cancer treatment was done through the [facility]. He is currently having a d-dimer of 3.45, his LDH level was 1044, his CRP level was 57. His pulse ox is 96% of these is approximately nasal cannula. He is currently on Decadron 6 mg IV. He is also placed on combination of vitamin C, vitamin D and zinc. IV fluids at 75 mL an hour. Note that the exact onset of his symptoms a lot. As the patient is very poor historian. It's likely the patient got his infection postop at the hospital. The patient is seen today 08/03/2020 in follow-up. He is a poor historian. He is currently on 3 L nasal cannula. Currently afebrile. This is day #2 of Remdesivir. He remains on Decadron and Lovenox. Remains on vitamin supplements. Blood cultures reveal no growth. White count 12.4. Hemoglobin 14.5. Lymphocytes 1.14. Sodium 136. Potassium 5.4. Creatinine 1.0. LDH 275. C-reactive protein 3.2. Objective - Vital Signs Vital signs: Vital Signs Temp 97.6 F 08/03/20 10:00 Pulse 69 08/03/20 10:00 Resp 18 08/03/20 10:00 BP 162/91 08/03/20 10:00 Pulse Ox 96 08/03/20 10:00 Intake & Output 08/02/20 08/03/20 08/03/20 18:59 06:59 18:59 Output Total 800 Balance -800 Weight 76.657 kg Output: Urine 800 Other: # Voids 3 3 - Exam 64-year-old male patient, on 3 L to maintain a saturation above 90%, calm comfortable, awake and alert, very poor historian Head exam was generally normal. There was no scleral icterus or corneal arcus. Mucous membranes were moist. Neck was supple and without jugular venous distension, thyromegaly, or carotid bruits. Carotids were easily palpable bilaterally. There was no adenopathy. Lungs sounds are diminished and there is some scattered crackles in the lung bases bilaterally. Surgical site in right anterior upper chest areas dry clean and intact Cardiac exam revealed the PMI to be normally situated and sized. The rhythm was regular and no extrasystoles were noted during several minutes of auscultation. The first and second heart sounds were normal and physiologic splitting of the second heart sound was noted. There were no murmurs, rubs, clicks, or gallops. Abdominal exam revealed normal bowel sounds. The abdomen was soft, non-tender, and without masses, organomegaly, or appreciable enlargement of the abdominal aorta. Extremities revealed some chronic contracture of the right upper extremity probably related to an old brachial plexus fracture or injury. No cyanosis or clubbing and the rest of the extremities. Neurologically, the patient is awake and alert and the patient does not have any focal neurological deficit. Cranial nerves are essentially intact. Examination of the skin revealed no evidence of significant rashes, suspicious appearing nevi or other concerning lesions. - Labs CBC & Chem 7: 08/03/20 05:57 08/03/20 05:57 Labs: Abnormal Lab Results - Last 24 Hours (Table) 08/03/20 08/03/20 Range/Units 05:57 05:57 WBC 12.49 H (4.50-10.00) X 10*3/uL Immature Gran # 0.10 H (0.00-0.04) X 10*3/uL Neutrophils # 10.09 H (1.80-7.70) X 10*3/uL Monocytes # 1.13 H (0.20-1.00) X 10*3/uL Eosinophils # 0 L (0.04-0.35) X 10*3/uL BUN/Creatinine Ratio 23.00 H (12.00-20.00) Ratio Glucose 134 H (70-110) mg/dL Lactate Dehydrogenase 275 H (120-246) U/L C-Reactive Protein 3.2 H (0.0-0.8) mg/dL Microbiology - Last 24 Hours (Table) 08/01/20 15:44 Blood Culture - Preliminary Blood No Growth after 24 hours 08/01/20 15:44 Blood Culture - Preliminary Blood No Growth after 24 hours Assessment and Plan Assessment: 1 acute Covid 19 related pneumonia. The patient is a very poor historian. The exact timing of symptom onset is not clear. The patient came in because of generalized weakness and fatigue and diminished appetite and weakness and had a bout of syncope. He tested positive for the viral infection. He was in the hospital in [facility] when he underwent a right upper lobe resection for underlying lung cancer. Is likely that the patient could've contracted the viru s in the hospital postop yet this is not certain. 2 acute hypoxic respiratory failure currently on 3 L of oxygen by nasal cannula with a pulse of 96% 3 low-grade fever, currently afebrile 4 COPD 5 history of lung cancer with a previous right upper lobe resection, this was done at the [facility] in [place]. Exact type and the staging of the lung cancer is not available to us at this point in time 6 syncope with a negative CAT scan of the head and neck 7 hypertension 8 hyperlipidemia 9 history of pacemaker insertion the exact cause is not clear 10 elevated inflammatory markers including LDH and CRP and mild elevation of the d-dimer. 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 Plan The patient was seen and evaluated by Dr. Dietz Currently stable from the pulmonary standpoint Continue the current treatment plan Day #2 Remdesivir Continue Decadron, Lovenox, vitamin supplement We'll continue to follow I, the cosigning physician, performed a history & physical examination of the patient. Lungs sounds with crackles in the bilateral posterior bases. Maintaining good O2 saturations in the 90s on 3 L/m per nasal cannula. I discussed the assessment and plan of care with my nurse practitioner, Clemencia Huntley. I attest to the above note as dictated by her.
[2020-08-03] MEDS: SODIUM CHLORIDE 0.9% 1,000 ML IV SCH (18:28)
[2020-08-03] MEDS: ATORVASTATIN 40 MG TAB PO SCH (20:40)
[2020-08-03] MEDS: MELATONIN 5 MG TABLET PO SCH (20:41)
[2020-08-04] MEDS: CHOLECALCIFEROL 25 MCG (1000 IU) TABLET PO SCH (07:34)
[2020-08-04] MEDS: ASCORBIC ACID 500 MG TAB PO SCH (07:35)
[2020-08-04] MEDS: ENOXAPARIN 40 MG/0.4 ML SYRINGE SQ SCH (07:35)
[2020-08-04] MEDS: carvediloL 12.5 MG TAB PO SCH ×2 (07:35→20:13)
[2020-08-04] MEDS: ZINC SULFATE 220 MG CAP PO SCH (07:35)
[2020-08-04] MEDS: ASPIRIN 81 MG PO SCH (07:35)
[2020-08-04] MEDS: DEXAMETHASONE SOD PHOSPHATE 10 MG/ML 1 ML VIAL IV SCH (07:35)
[2020-08-04] MEDS: MULTIVITAMINS, THERA 1 EACH TAB PO SCH (07:35)
[2020-08-04] MEDS: amLODIPine 10 MG TAB PO SCH (09:21)
[2020-08-04 09:39] LABS: Basophils # (A) 0.01 X 10*3/uL (0.00-0.10); Basophils % (A) 0.1 %; Eosinophils # (A) 0 X 10*3/uL (0.04-0.35); Eosinophils % (A) 0 %; HCT 44.3 % (39.6-50.0); HGB 14.2 g/dL (13.0-17.0); Lymphocytes % (A) 7.8 %; MCH 30.7 pg (27.0-32.0); MCHC 32.1 g/dL (32.0-37.0); MCV 95.7 fL (80.0-97.0); Mean Platelet Volume 10.9 fL (9.5-12.2); Monocytes # (A) 0.87 X 10*3/uL (0.20-1.00); Monocytes % (A) 6.8 %; Neutrophils # (A) 10.76 X 10*3/uL (1.80-7.70); Neutrophils % (A) 84.4 %; Platelet Count 395 X 10*3/uL (140-440); RBC 4.63 X 10*6/uL (4.40-5.60); RDW 14.4 % (11.5-14.5); WBC 12.76 X 10*3/uL (4.50-10.00)
[2020-08-04 09:51] LABS: African American GFR (CKD) 91.8 (60.0-200.0); Anion Gap 6.1 mmol/L (4.00-12.00); Calcium 8.8 mg/dL (8.7-10.3); Carbon Dioxide 25.9 mmol/L (21.6-31.8); Non-African American GFR(CKD) 79.2 (60.0-200.0); Potassium 5.5 mmol/L (3.5-5.5)
--- NOTE | 2020-08-04 10:27 | ECHOF ---
Referral Reason:Syncope MEASUREMENTS -------- HEIGHT: 162.6 cm WEIGHT: 84.8 kg BP: RVIDd: 3.5 cm (< 3.3) IVSd: 0.9 cm (0.6 - 1.1) LVIDd: 4.6 cm (3.9 - 5.3) LVPWd: 1.0 cm (0.6 - 1.1) IVSs: 1.2 cm LVIDs: 2.5 cm LVPWs: 1.4 cm LA Diam: 3.6 cm (2.7 - 3.8) LAESV Index (A-L): 26.71 ml/m Ao Diam: 3.1 cm (2.0 - 3.7) AV Cusp: 2.1 cm (1.5 - 2.6) MV EXCURSION: 24.295 mm (> 18.000) MV EF SLOPE: 140 mm/s (70 - 150) EPSS: 0.3 cm MV E Sin: 0.72 m/s MV DecT: 203 ms MV A Sin: 0.84 m/s MV E/A Ratio: 0.86 FINDINGS -------- Pacerwire seen in RV and RA. Pt. is positive Covid . LV size, wall thickness and systolic function are normal, with an EF greater than 55%. The left joey tricular size is normal. The right ventricle is normal in size. The left atrial size is normal. The right atrial size is normal. There is mild aortic valve sclerosis. There is no evidence of aortic regurgitation. Mild mitral regurgitation is present. Mild tricuspid regurgitation present. Right ventricular systolic pressure is normal at < 35 mmHg. There is no pulmonic regurgitation present. The aortic root size is normal. Echo free space represents a pericardial fat pad. CONCLUSIONS -------- 1. Pacerwire seen in RV and RA. 2. Pt. is positive Covid . 3. LV size, wall thickness and systolic function are normal, with an EF greater than 55%. 4. The left ventricular size is normal. 5. The right ventricle is normal in size. 6. The left atrial size is normal. 7. The right atrial size is normal. 8. There is mild aortic valve sclerosis. 9. Mild mitral regurgitation is present. 10. Mild tricuspid regurgitation present. 11. The aortic root size is normal. 12. Echo free space represents a pericardial fat pad. LABELING MACHINE OPERATOR: Bhavana Oakley RDCS
[2020-08-04] MEDS: REMDESIVIR 100 MG in SODIUM CHLORIDE 0.9% 250 ML IVPB SCH (13:25)
--- NOTE | 2020-08-04 13:47 | P.PN ---
Subjective Progress Note Date: 08/04/20 Patient is doing fairly well today. He denies any shortness of breath or dizziness. No acute events overnight reported by nursing staff. Objective - Vital Signs Vital signs: Vital Signs Temp 98.2 F 08/04/20 10:00 Pulse 62 08/04/20 10:00 Resp 17 08/04/20 10:00 BP 141/86 08/04/20 10:00 Pulse Ox 95 08/04/20 10:00 Intake & Output 08/03/20 08/04/20 08/04/20 18:59 06:59 18:59 Intake Total 100 Output Total 800 700 Balance -800 -600 Intake: Oral 100 Output: Urine 800 700 Other: Voiding Method Urinal # Voids 3 - Exam General: The patient is awake and alert, in no distress Eye: there is normal conjunctiva bilaterally. Neck: The neck is supple, there is no JVD. Cardiovascular: Normal S1-S2, no S3-S4, no murmurs. Respiratory: Lungs clear to auscultation bilaterally Gastrointestinal: Abdomen is soft, nontender Musculoskeletal: There is no pedal edema. Neurological:. Speech is normal. Skin: Skin is warm and dry - Labs CBC & Chem 7: 08/04/20 05:39 08/04/20 05:39 Labs: Abnormal Lab Results - Last 24 Hours (Table) 08/04/20 08/04/20 Range/Units 05:39 05:39 WBC 12.76 H (4.50-10.00) X 10*3/uL Immature Gran # 0.12 H (0.00-0.04) X 10*3/uL Neutrophils # 10.76 H (1.80-7.70) X 10*3/uL Eosinophils # 0 L (0.04-0.35) X 10*3/uL BUN/Creatinine Ratio 22.00 H (12.00-20.00) Ratio Glucose 164 H (70-110) mg/dL Microbiology - Last 24 Hours (Table) 08/01/20 15:44 Blood Culture - Preliminary Blood No Growth after 48 hours 08/01/20 15:44 Blood Culture - Preliminary Blood No Growth after 48 hours Assessment and Plan Assessment: This is a 64-year-old male with very complex past medical history noted below who presented to the emergency room after a syncopal episode. Patient was evaluated in the emergency room and currently admitted to the hospital for further management of his medical problems noted below. 1. Syncopal episode, most likely secondary to dehydration and hypotension. Orthostatic blood pressure positive in the ER. Patient received IV fluid hydration. Repeat orthostatic blood pressure checked and negative. 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 Echocardiogram showed preserved ejection fraction with no significant valvular abnormalities 2. COVID-19 pneumonia, started on Decadron day #4. Remdesivir date #3. Vitamin C, vitamin D, zinc, and melatonin daily. Bilateral patchy groundglass opacities noted on CT. We will continue to monitor closely. Inflammatory markers improved significantly 3. Acute hypoxic respiratory failure currently on 2 L of oxygen via nasal cannula. Wean off O2 as tolerated. 4. Hypovolemic hyponatremia: Resolved with IV fluid hydration 5. Essential hypertension, home medications held since admission secondary to hypotension. Blood pressure improving. I resumed Coreg and amlodipine. Continue to monitor. Lisinopril remain on hold may resume tomorrow 6. History of lung cancer status post tumor removal approximately 2 weeks ago 7. DVT prophylaxis with subcu Lovenox
--- NOTE | 2020-08-04 17:36 | P.PN ---
Subjective Progress Note Date: 08/04/20 Principal diagnosis: CoVID 19 pneumonia 64-year-old male patient, known history of a COPD, known history of lung cancer and the patient is undergone a recent robotic-assisted right upper lobe resection at the [facility] details of the surgery is not available and the staging is not available and the type of lung cancer is not available at this point in time., came into the hospital after having a syncopal episode. He has been noted to feel sick over the past few days. He was having fatigue and diminished appetite. He was laying in bed all the time. His sister lives with him heard that he fell and EMS was activated. The patient was found to be unconscious for roughly 10 minutes. No seizure activity was noted. He did have a similar syncopal episode back in May 2018. No reported trauma to the head. He was brought into the hospital. Further testing showed that the patient had a positive COVID 19. . At time of arrival to the emergency, his BP was 97/74 and he was running a low-grade fever with a temperature 100.2 with a pulse of 70 and his pulse ox was 93%. He was further investigated with a CAT scan of the brain and cervical spine that showed no acute abnormalities. He had a chest x-ray that showed hyperinflation COPD and there was a left anterior chest pacemaker in place. CT angiogram showed no evidence of any pulmonary embolism. There is a right upper lobe postsurgical scarring in addition to some vague scattered groundglass pulmonary infiltrates bilaterally consistent with Covid 19 related pneumonia. He also had some mediastinal lymphadenopathy involving the mediastinum and the right hilar area. Apparently his cancer treatment was done through the [facility]. He is currently having a d-dimer of 3.45, his LDH level was 1044, his CRP level was 57. His pulse ox is 96% of these is approximately nasal cannula. He is currently on Decadron 6 mg IV. He is also placed on combination of vitamin C, vitamin D and zinc. IV fluids at 75 mL an hour. Note that the exact onset of his symptoms a lot. As the patient is very poor historian. It's likely the patient got his infection postop at the hospital. The patient is seen today 08/03/2020 in follow-up. He is a poor historian. He is currently on 3 L nasal cannula. Currently afebrile. This is day #2 of Remdesivir. He remains on Decadron and Lovenox. Remains on vitamin supplements. Blood cultures reveal no growth. White count 12.4. Hemoglobin 14.5. Lymphocytes 1.14. Sodium 136. Potassium 5.4. Creatinine 1.0. LDH 275. C-reactive protein 3.2. The patient is seen today 08/04/2020 in follow-up. Mando on 3 L nasal cannula with maintaining O2 saturation in the 90s. This is day #3 of his Remdesivir. He is doing quite a bit better. No worsening shortness of breath, cough or congestion. Echocardiogram reveals preserved left ventricular systolic function with ejection fraction of 55%. White count 12.7. Hemoglobin 14.2. Lymphocytes 1.0. Sodium 138. Potassium 5.5. Creatinine 1.0. He remains on Lovenox, Decadron, vitamin supplements. Objective - Vital Signs Vital signs: Vital Signs Temp 97.5 F L 08/04/20 14:00 Pulse 66 08/04/20 14:00 Resp 16 08/04/20 14:00 BP 116/57 08/04/20 14:00 Pulse Ox 92 L 08/04/20 14:00 Intake & Output 08/03/20 08/04/20 08/04/20 18:59 06:59 18:59 Intake Total 100 Output Total 800 700 Balance -800 -600 Intake: Oral 100 Output: Urine 800 700 Other: Voiding Method Urinal # Voids 3 - Exam 64-year-old male patient, on 3 L to maintain a saturation above 90%, calm comfortable, awake and alert, very poor historian Head exam was generally normal. There was no scleral icterus or corneal arcus. Mucous membranes were moist. Neck was supple and without jugular venous distension, thyromegaly, or carotid bruits. Carotids were easily palpable bilaterally. There was no adenopathy. Lungs sounds are diminished and there is some scattered crackles in the lung bases bilaterally. Surgical site in right anterior upper chest areas dry clean and intact Cardiac exam revealed the PMI to be normally situated and sized. The rhythm was regular and no extrasystoles were noted during several minutes of auscultation. The first and second heart sounds were normal and physiologic splitting of the second heart sound was noted. There were no murmurs, rubs, clicks, or gallops. Abdominal exam revealed normal bowel sounds. The abdomen was soft, non-tender, and without masses, organomegaly, or appreciable enlargement of the abdominal aorta. Extremities revealed some chronic contracture of the right upper extremity probably related to an old brachial plexus fracture or injury. No cyanosis or clubbing and the rest of the extremities. Neurologically, the patient is awake and alert and the patient does not have any focal neurological deficit. Cranial nerves are essentially intact. Examination of the skin revealed no evidence of significant rashes, suspicious appearing nevi or other concerning lesions. - Labs CBC & Chem 7: 08/04/20 05:39 08/04/20 05:39 Labs: Abnormal Lab Results - Last 24 Hours (Table) 08/04/20 08/04/20 Range/Units 05:39 05:39 WBC 12.76 H (4.50-10.00) X 10*3/uL Immature Gran # 0.12 H (0.00-0.04) X 10*3/uL Neutrophils # 10.76 H (1.80-7.70) X 10*3/uL Eosinophils # 0 L (0.04-0.35) X 10*3/uL BUN/Creatinine Ratio 22.00 H (12.00-20.00) Ratio Glucose 164 H (70-110) mg/dL Microbiology - Last 24 Hours (Table) 08/01/20 15:44 Blood Culture - Preliminary Blood No Growth after 48 hours 08/01/20 15:44 Blood Culture - Preliminary Blood No Growth after 48 hours Assessment and Plan Assessment: 1 acute Covid 19 related pneumonia. The patient is a very poor historian. The exact timing of symptom onset is not clear. The patient came in because of generalized weakness and fatigue and diminished appetite and weakness and had a bout of syncope. He tested positive for the CoVID 19 infection. He was in the hospital in [facility] when he underwent a right upper lobe resection for underlying lung cancer. Is likely that the patient could've contracted the virus in the hospital postop yet this is not certain. This is day #3 of Remdesivir. Remains on Lovenox, Decadron, vitamins 2 acute hypoxic respiratory failure currently on 3 L of oxygen by nasal cannula with a pulse of 96% 3 low-grade fever, currently afebrile 4 COPD 5 history of lung cancer with a previous right upper lobe resection, this was done at the [facility] in [place]. Exact type and the staging of the lung cancer is not available to us at this point in time 6 syncope with a negative CAT scan of the head and neck 7 hypertension 8 hyperlipidemia 9 history of pacemaker insertion the exact cause is not clear 10 elevated inflammatory markers including LDH and CRP and mild elevation of the d-dimer. 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 Plan The patient was seen and evaluated by Dr. Dietz Currently stable from the pulmonary standpoint Continue the current treatment plan Day #3 Remdesivir Continue Decadron, Lovenox, vitamin supplement Follow-up chest x-ray, labs in a.m. We'll continue to follow I, the cosigning physician, performed a history & physical examination of the patient. Lungs sounds with crackles in the bilateral posterior bases. Maintaining good O2 saturations in the 90s on 3 L/m per nasal cannula. I discussed the assessment and plan of care with my nurse practitioner, Clemencia Huntley. I attest to the above note as dictated by her.
[2020-08-04] MEDS: MELATONIN 5 MG TABLET PO SCH (20:13)
[2020-08-04] MEDS: ATORVASTATIN 40 MG TAB PO SCH (20:13)
[2020-08-05] MEDS: ENOXAPARIN 40 MG/0.4 ML SYRINGE SQ SCH (08:27)
[2020-08-05] MEDS: ASPIRIN 81 MG PO SCH (08:27)
[2020-08-05] MEDS: DEXAMETHASONE SOD PHOSPHATE 10 MG/ML 1 ML VIAL IV SCH (08:27)
[2020-08-05] MEDS: carvediloL 12.5 MG TAB PO SCH ×2 (08:27→20:14)
[2020-08-05] MEDS: CHOLECALCIFEROL 25 MCG (1000 IU) TABLET PO SCH (08:27)
[2020-08-05] MEDS: ZINC SULFATE 220 MG CAP PO SCH (08:28)
[2020-08-05] MEDS: MULTIVITAMINS, THERA 1 EACH TAB PO SCH (08:28)
[2020-08-05] MEDS: amLODIPine 10 MG TAB PO SCH (08:28)
[2020-08-05] MEDS: ASCORBIC ACID 500 MG TAB PO SCH (08:28)
[2020-08-05 09:10] LABS: Basophils # (A) 0.03 X 10*3/uL (0.00-0.10); Basophils % (A) 0.3 %; Eosinophils # (A) 0 X 10*3/uL (0.04-0.35); Eosinophils % (A) 0 %; HCT 43.8 % (39.6-50.0); HGB 14.6 g/dL (13.0-17.0); Lymphocytes # (A) 0.88 X 10*3/uL (0.90-5.00); Lymphocytes % (A) 7.4 %; MCH 31.4 pg (27.0-32.0); MCHC 33.3 g/dL (32.0-37.0); MCV 94.2 fL (80.0-97.0); Mean Platelet Volume 10.8 fL (9.5-12.2); Monocytes # (A) 0.76 X 10*3/uL (0.20-1.00); Monocytes % (A) 6.4 %; Neutrophils # (A) 10.02 X 10*3/uL (1.80-7.70); Neutrophils % (A) 84.1 %; Platelet Count 391 X 10*3/uL (140-440); RBC 4.65 X 10*6/uL (4.40-5.60); RDW 14.2 % (11.5-14.5)
--- NOTE | 2020-08-05 11:12 | XR ---
EXAMINATION TYPE: XR chest 1V portable DATE OF EXAM: 08/05/2020 COMPARISON: 08/01/2020 INDICATION: COVID TECHNIQUE: Single frontal view of the chest is obtained. FINDINGS: The heart size is normal. The pulmonary vasculature is normal. There is some minimal linear opacities within the left mid lung field. This is improved from comparis on. Pacemaker overlies left chest. Prior right shoulder plate and screws are evident IMPRESSION: 1. Improving left midlung infiltrate
[2020-08-05] MEDS: REMDESIVIR 100 MG in SODIUM CHLORIDE 0.9% 250 ML IVPB SCH (14:00)
--- NOTE | 2020-08-05 15:53 | P.PN ---
Subjective Progress Note Date: 08/05/20 (delayed charting seen at 0945) Principal diagnosis: shortness of breath Patient is a 64-year-old male with a history of lung cancer status post resection 2 weeks ago at [facility], status post permanent pacemaker implantation, and hypertension who presented to the ER after a syncopal episode. In the ER he was subsequently found to have coving 19 pneumonia. His d-dimer was 3.45, LDH 1044, CRP 157.4. EKG demonstrated a first-degree AV block with left axis deviation. CTA was consistent with [place] pneumonia and mediastinal hilum where lymphadenopathy, negative for pulmonary embolism, it did show multiple small hepatic lesions. His also found to have a sodium of 133 cons istent with dehydration. His vital signs were positive for orthostatic hypotension in the ER. His home antihypertensive medications were held. He was started on Decadron. He was admitted for further monitoring. Pulmonary was consulted. He was started on Remdesivir. He was also started on IV fluids. Patient seen and examined at bedside. He reports his breathing is still somewhat poor but better than admission, cough is unchanged, eating and drinking well. Energy is returning. He feels as though he will be ready to go home tomorrow. General: Ill-appearing, appears older than stated age, no distress, thin, gaunt Derm: warm, dry Head: atraumatic, normocephalic, symmetric Eyes: EOMI, no lid lag, anicteric sclera Mouth: no lip lesion, mucus membranes moist Cardiovascular: S1S2 reg, no murmur, positive posterior tibial pulse bilateral, Lungs: Coarse breath sounds bilateral, no rhonchi, no rales , no accessory muscle use Abdominal: soft, nontender to palpation, no guarding, no appreciable organomegaly Ext: no gross muscle atrophy, no edema, no contractures Neuro: CN II-XI grossly intact, no focal neuro deficits Psych: Alert, oriented, appropriate affect Assessment and Plan: COVID 19 pneumonia, acute hypoxic respiratory failure Lung cancer status post right upper lobe resection, currently with mediastinal and hilar lymphadenopathy-outpatient follow-up Syncope secondary to dehydration Orthostatic hypotension COPD without exacerbation Hypertension Dyslipidemia-continue statin Continue with Decadron, pulmonary recommendations, REM day #4, vitamin C, vitamin D, zinc and melatonin were prescribed daily and will be continued. Patient will likely be discharged home tomorrow after his final dose of REM. He is currently satting 97% on 2 L nasal cannula. Discussed with nursing who will wean him off of oxygen and follow SpO2 levels. Continue to hold lisinopril. He did tolerate resumption of his Norvasc and Coreg without difficulties. He lives with his sister who will care for him at home. Objective - Vital Signs Vital signs: Vital Signs Temp 97.5 F L 08/05/20 14:40 Pulse 63 08/05/20 14:40 Resp 15 08/05/20 14:40 BP 128/79 08/05/20 14:40 Pulse Ox 95 08/05/20 14:40 Intake & Output 08/04/20 08/05/20 08/05/20 18:59 06:59 18:59 Intake Total 1080 200 Output Total 100 Balance 1080 200 -100 Intake: Oral 1080 200 Output: Urine 100 Other: Voiding Method Urinal # Voids 5 2 1 # Bowel Movements 1 - Labs CBC & Chem 7: 08/05/20 05:24 08/04/20 05:39 Labs: Abnormal Lab Results - Last 24 Hours (Table) 08/05/20 08/05/20 Range/Units 05:24 05:24 WBC 11.90 H (4.50-10.00) X 10*3/uL Immature Gran # 0.21 H (0.00-0.04) X 10*3/uL Neutrophils # 10.02 H (1.80-7.70) X 10*3/uL Lymphocytes # 0.88 L (0.90-5.00) X 10*3/uL Eosinophils # 0 L (0.04-0.35) X 10*3/uL D-Dimer 0.98 H (<0.60) mg/L FEU Microbiology - Last 24 Hours (Table) 08/01/20 15:44 Blood Culture - Preliminary Blood No Growth after 72 hours 08/01/20 15:44 Blood Culture - Preliminary Blood No Growth after 72 hours
[2020-08-05 16:15] LABS: HCT 45.7 % (39.0-53.0); HGB 15.4 gm/dL (13.0-17.5); MCH 31.3 pg (25.0-35.0); MCHC 33.8 g/dL (31.0-37.0); MCV 92.6 fL (80.0-100.0); Mean Platelet Volume 7.3; Platelet Count 397 k/uL (150-450); RBC 4.93 m/uL (4.30-5.90); RDW 13.9 % (11.5-15.5); WBC 11.2 k/uL (3.8-10.6)
[2020-08-05 16:43] LABS: ALT 42 U/L (4-49); AST 35 U/L (17-59); African American GFR (CKD) >90 (>60 ml/min/1.73 sqM); Albumin 3.1 g/dL (3.5-5.0); Albumin/Globulin Ratio 1.1; Alkaline Phosphatase 101 U/L (38-126); Anion Gap 9 mmol/L; Blood Urea Nitrogen 24 mg/dL (9-20); Carbon Dioxide 24 mmol/L (22-30); Chloride 101 mmol/L (98-107); Globulin 2.9 g/dL; Glucose 245 mg/dL (74-99); LDH 579 U/L (313-618); Non-African American GFR(CKD) 90 (>60 ml/min/1.73 sqM); Potassium 5.3 mmol/L (3.5-5.1); Sodium 134 mmol/L (137-145); Total Bilirubin 0.5 mg/dL (0.2-1.3)
[2020-08-05 19:19] LABS: African American GFR (CKD) 81.8 (60.0-200.0); Anion Gap 7.8 mmol/L (4.00-12.00); BUN/Creat Ratio 22.73 Ratio (12.00-20.00); C Reactive Protein 0.9 mg/dL (0.0-0.8); Carbon Dioxide 25.2 mmol/L (21.6-31.8); Non-African American GFR(CKD) 70.6 (60.0-200.0); Potassium 5.3 mmol/L (3.5-5.5)
--- NOTE | 2020-08-05 19:20 | P.PN ---
Subjective Progress Note Date: 08/05/20 Principal diagnosis: CoVID 19 pneumonia 64-year-old male patient, known history of a COPD, known history of lung cancer and the patient is undergone a recent robotic-assisted right upper lobe resection at the [facility] details of the surgery is not available and the staging is not available and the type of lung cancer is not available at this point in time., came into the hospital after having a syncopal episode. He has been noted to feel sick over the past few days. He was having fatigue and diminished appetite. He was laying in bed all the time. His sister lives with him heard that he fell and EMS was activated. The patient was found to be unconscious for roughly 10 minutes. No seizure activity was noted. He did have a similar syncopal episode back in May 2018. No reported trauma to the head. He was brought into the hospital. Further testing showed that the patient had a positive COVID 19. . At time of arrival to the emergency, his BP was 97/74 and he was running a low-grade fever with a temperature 100.2 with a pulse of 70 and his pulse ox was 93%. He was further investigated with a CAT scan of the brain and cervical spine that showed no acute abnormalities. He had a chest x-ray that showed hyperinflation COPD and there was a left anterior chest pacemaker in place. CT angiogram showed no evidence of any pulmonary embolism. There is a right upper lobe postsurgical scarring in addition to some vague scattered groundglass pulmonary infiltrates bilaterally consistent with Covid 19 related pneumonia. He also had some mediastinal lymphadenopathy involving the mediastinum and the right hilar area. Apparently his cancer treatment was done through the [facility]. He is currently having a d-dimer of 3.45, his LDH level was 1044, his CRP level was 57. His pulse ox is 96% of these is approximately nasal cannula. He is currently on Decadron 6 mg IV. He is also placed on combination of vitamin C, vitamin D and zinc. IV fluids at 75 mL an hour. Note that the exact onset of his symptoms a lot. As the patient is very poor historian. It's likely the patient got his infection postop at the hospital. The patient is seen today 08/03/2020 in follow-up. He is a poor historian. He is currently on 3 L nasal cannula. Currently afebrile. This is day #2 of Remdesivir. He remains on Decadron and Lovenox. Remains on vitamin supplements. Blood cultures reveal no growth. White count 12.4. Hemoglobin 14.5. Lymphocytes 1.14. Sodium 136. Potassium 5.4. Creatinine 1.0. LDH 275. C-reactive protein 3.2. The patient is seen today 08/04/2020 in follow-up. Mando on 3 L nasal cannula with maintaining O2 saturation in the 90s. This is day #3 of his Remdesivir. He is doing quite a bit better. No worsening shortness of breath, cough or congestion. Echocardiogram reveals preserved left ventricular systolic function with ejection fraction of 55%. White count 12.7. Hemoglobin 14.2. Lymphocytes 1.0. Sodium 138. Potassium 5.5. Creatinine 1.0. He remains on Lovenox, Decadron, vitamin supplements. The patient is seen today 08/05/2020 in follow-up on the regular medical floor. He is currently sitting up in bed having dinner. Awake and alert in no acute distress. He is maintaining O2 saturation in the 90s on room air. He is doing quite a bit better. He is on day #4 of his Remdesivir. White count 11.2. Hemoglobin 15.4. Sodium 134. Potassium 5.3. Creatinine 0.9. LDH 579. D- dimer 0.98. Remains on Decadron, Lovenox, vitamin supplements. Objective - Vital Signs Vital signs: Vital Signs Temp 98 F 08/05/20 18:39 Pulse 83 08/05/20 18:39 Resp 18 08/05/20 18:39 BP 164/94 08/05/20 18:39 Pulse Ox 94 L 08/05/20 18:39 Intake & Output 08/05/20 08/05/20 08/06/20 06:59 18:59 06:59 Intake Total 200 Output Total 850 Balance 200 -850 Intake: Oral 200 Output: Urine 850 Other: Voiding Method Urinal # Voids 2 1 # Bowel Movements 1 - Exam 64-year-old male patient, on 3 L to maintain a saturation above 90%, calm comfo rtable, awake and alert, very poor historian Head exam was generally normal. There was no scleral icterus or corneal arcus. Mucous membranes were moist. Neck was supple and without jugular venous distension, thyromegaly, or carotid bruits. Carotids were easily palpable bilaterally. There was no adenopathy. Lungs sounds are diminished and there is some scattered crackles in the lung bases bilaterally. Surgical site in right anterior upper chest areas dry clean and intact Cardiac exam revealed the PMI to be normally situated and sized. The rhythm was regular and no extrasystoles were noted during several minutes of auscultation. The first and second heart sounds were normal and physiologic splitting of the second heart sound was noted. There were no murmurs, rubs, clicks, or gallops. Abdominal exam revealed normal bowel sounds. The abdomen was soft, non-tender, and without masses, organomegaly, or appreciable enlargement of the abdominal aorta. Extremities revealed some chronic contracture of the right upper extremity probably related to an old brachial plexus fracture or injury. No cyanosis or clubbing and the rest of the extremities. Neurologically, the patient is awake and alert and the patient does not have any focal neurological deficit. Cranial nerves are essentially intact. Examination of the skin revealed no evidence of significant rashes, suspicious appearing nevi or other concerning lesions. - Labs CBC & Chem 7: 08/05/20 16:05 08/05/20 16:05 Labs: Abnormal Lab Results - Last 24 Hours (Table) 08/05/20 08/05/20 08/05/20 Range/Units 05:24 05:24 16:05 WBC 11.90 H 11.2 H (4.50-10.00) X 10*3/uL Immature Gran # 0.21 H (0.00-0.04) X 10*3/uL Neutrophils # 10.02 H (1.80-7.70) X 10*3/uL Lymphocytes # 0.88 L (0.90-5.00) X 10*3/uL Eosinophils # 0 L (0.04-0.35) X 10*3/uL D-Dimer 0.98 H (<0.60) mg/L FEU Sodium (137-145) mmol/L Potassium (3.5-5.1) mmol/L BUN (9-20) mg/dL Glucose (74-99) mg/dL Total Protein (6.3-8.2) g/dL Albumin (3.5-5.0) g/dL 08/05/20 Range/Units 16:05 WBC (4.50-10.00) X 10*3/uL Immature Gran # (0.00-0.04) X 10*3/uL Neutrophils # (1.80-7.70) X 10*3/uL Lymphocytes # (0.90-5.00) X 10*3/uL Eosinophils # (0.04-0.35) X 10*3/uL D-Dimer (<0.60) mg/L FEU Sodium 134 L (137-145) mmol/L Potassium 5.3 H (3.5-5.1) mmol/L BUN 24 H (9-20) mg/dL Glucose 245 H (74-99) mg/dL Total Protein 6.0 L (6.3-8.2) g/dL Albumin 3.1 L (3.5-5.0) g/dL Microbiology - Last 24 Hours (Table) 08/01/20 15:44 Blood Culture - Preliminary Blood No Growth after 96 hours 08/01/20 15:44 Blood Culture - Preliminary Blood No Growth after 96 hours Assessment and Plan Assessment: 1 acute Covid 19 related pneumonia. The patient is a very poor historian. The exact timing of symptom onset is not clear. The patient came in because of generalized weakness and fatigue and diminished appetite and weakness and had a bout of syncope. He tested positive for the CoVID 19 infection. He was in the hospital in [facility] when he underwent a right upper lobe resection for underlying lung cancer. Is likely that the patient could've contracted the virus in the hospital postop yet this is not certain. This is day #4 of Remdesivir. Remains on Lovenox, Decadron, vitamins. Chest x-ray showing improvement of the left midlung infiltrate. 2 acute hypoxic respiratory failure , improved and on room air 3 low-grade fever, currently afebrile 4 COPD 5 history of lung cancer with a previous right upper lobe resection, this was done at the [facility] in [place]. Exact type and the staging of the lung cancer is not available to us at this point in time 6 syncope with a negative CAT scan of the head and neck 7 hypertension 8 hyperlipidemia 9 history of pacemaker insertion the exact cause is not clear 10 elevated inflammatory markers including LDH and CRP and mild elevation of the d-dimer. 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 Plan The patient was seen and evaluated by Dr. Dietz Currently stable from the pulmonary standpoint Chest x-ray showing improved left midlung infiltrate On room air Day #4 Remdesivir Continue Decadron, Lovenox, vitamin supplement Probable discharge in the a.m. I, the cosigning physician, performed a history & physical examination of the patient. Lungs sounds with crackles in the bilateral posterior bases. Maintaining good O2 saturations in the 90s on room air.. I discussed the assessment and plan of care with my nurse practitioner, Clemencia Huntley. I attest to the above note as dictated by her.
[2020-08-05] MEDS: ATORVASTATIN 40 MG TAB PO SCH (20:14)
[2020-08-05] MEDS: MELATONIN 5 MG TABLET PO SCH (20:14)
[2020-08-06] MEDS: CHOLECALCIFEROL 25 MCG (1000 IU) TABLET PO SCH (07:54)
[2020-08-06] MEDS: ASCORBIC ACID 500 MG TAB PO SCH (07:54)
[2020-08-06] MEDS: carvediloL 12.5 MG TAB PO SCH (07:54)
[2020-08-06] MEDS: amLODIPine 10 MG TAB PO SCH (07:54)
[2020-08-06] MEDS: ASPIRIN 81 MG PO SCH (07:54)
[2020-08-06] MEDS: DEXAMETHASONE SOD PHOSPHATE 10 MG/ML 1 ML VIAL IV SCH (07:55)
[2020-08-06] MEDS: ZINC SULFATE 220 MG CAP PO SCH (08:00)
[2020-08-06] MEDS: MULTIVITAMINS, THERA 1 EACH TAB PO SCH (08:00)
[2020-08-06] MEDS: ENOXAPARIN 40 MG/0.4 ML SYRINGE SQ SCH (08:01)
[2020-08-06 09:17] LABS: Basophils % (A) 0 %; Eosinophils % (A) 0 %; HCT 45.8 % (39.0-53.0); HGB 15.3 gm/dL (13.0-17.5); Lymphocytes # (A) 0.8 k/uL (1.0-4.8); Lymphocytes % (A) 7 %; MCH 30.8 pg (25.0-35.0); MCHC 33.4 g/dL (31.0-37.0); MCV 92.4 fL (80.0-100.0); Mean Platelet Volume 7.9; Monocytes # (A) 0.8 k/uL (0-1.0); Monocytes % (A) 7 %; Neutrophils # (A) 10.1 k/uL (1.3-7.7); Neutrophils % (A) 85 %; Platelet Count 412 k/uL (150-450); RBC 4.96 m/uL (4.30-5.90); RDW 13.9 % (11.5-15.5); WBC 11.9 k/uL (3.8-10.6)
[2020-08-06 09:30] VITALS: RESP 16
[2020-08-06 09:39] LABS: African American GFR (CKD) >90 (>60 ml/min/1.73 sqM); Anion Gap 8 mmol/L; Blood Urea Nitrogen 23 mg/dL (9-20); Carbon Dioxide 25 mmol/L (22-30); Chloride 100 mmol/L (98-107); Glucose 181 mg/dL (74-99); Non-African American GFR(CKD) >90 (>60 ml/min/1.73 sqM); Potassium 4.9 mmol/L (3.5-5.1); Sodium 133 mmol/L (137-145)
[2020-08-06] MEDS: REMDESIVIR 100 MG in SODIUM CHLORIDE 0.9% 250 ML IVPB SCH (13:37)
[2020-08-06 13:45] VITALS: BMI 23.6
[2020-08-06 13:56] VITALS: BP 126/84; PULSE 67; TEMP 97.5
--- NOTE | 2020-08-06 16:39 | P.DS ---
Providers Date of admission: 08/01/20 18:24 Expected date of discharge: 08/06/20 Attending physician: Shivam Verdugo MD Consults: 08/02/20 07:46 Consult Physician Routine Consulting Provider: Garrett Almanzar Consult Reason/Comments: COVID Do you want consulting provider notified?: Yes Primary care physician: Physician Nonstaff Hospital Course: Discharge Diagnosis: COVID 19 pneumonia, acute hypoxic respiratory failure Lung cancer status post right upper lobe resection, currently with mediastinal and hilar lymphadenopathy-outpatient follow-up Syncope secondary to dehydration Orthostatic hypotension COPD without exacerbation Hypertension Dyslipidemia Hospital Course: Patient is a 64-year-old male with a history of lung cancer status post resection 2 weeks ago at [facility], status post permanent pacemaker implantation, and hypertension who presented to the ER after a syncopal episode. In the ER he was subsequently found to have coving 19 pneumonia. His d-dimer was 3.45, LDH 1044, CRP 157.4. EKG demonstrated a first-degree AV block with left axis deviation. CTA was consistent with Cob[place] pneumonia and mediastinal hilum where lymphadenopathy, negative for pulmonary embolism, it did show multiple small hepatic lesions. His also found to have a sodium of 133 consistent with dehydration. His vital signs were positive for orthostatic hypotension in the ER. His home antihypertensive medications were held. He was started on Decadron. He was admitted for further monitoring. Pulmonary was consulted. He was started on Remdesivir. He was also started on IV fluids. Patient seen and examined at bedside. No chest pain, SOB, nausea, vomiting, chest pain Vital signs reviewed and stable. General: non toxic, no distress, appears at stated age, temporal wasting Derm: warm, dry Head: atraumatic, normocephalic, symmetric Eyes: EOMI, no lid lag, anicteric sclera Mouth: no lip lesion, mucus membranes moist Cardiovascular: S1S2 reg, no murmur, positive posterior tibial pulse bilateral, Lungs: + rhonchi right apex, no rales , no accessory muscle use Abdominal: soft, nontender to palpation, no guarding, no appreciable organomegaly Ext: no gross muscle atrophy, no edema, no contractures Neuro: CN II-XI grossly intact, no focal neuro deficits Psych: Alert, oriented, appropriate affect A total of 37 minutes of time were spent preparing this complex discharge summary . Patient Condition at Discharge: Stable Plan - Discharge Summary New Discharge Prescriptions: New Dexamethasone [Decadron] 6 mg PO DAILY #5 tablet Cholecalciferol [Vitamin D3 (25 Mcg = 1000 Iu)] 125 mcg PO DAILY #0 tablet Continue amLODIPine [Norvasc] 10 mg PO DAILY Multivitamins, Thera [Multivitamin (formulary)] 1 tab PO DAILY Aspirin EC [Ecotrin Low Dose] 81 mg PO DAILY Carvedilol [Coreg] 25 mg PO BID Atorvastatin Calcium [Lipitor] 40 mg PO HS Omeprazole 40 mg PO BID PRN PRN Reason: Gi Upset No Action lisinopriL 40 mg PO HS Discharge Medication List Aspirin EC [Ecotrin Low Dose] 81 mg PO DAILY 08/01/20 [History] Atorvastatin Calcium [Lipitor] 40 mg PO HS 08/01/20 [History] Carvedilol [Coreg] 25 mg PO BID 08/01/20 [History] Multivitamins, Thera [Multivitamin (formulary)] 1 tab PO DAILY 08/01/20 [History] Omeprazole 40 mg PO BID PRN 08/01/20 [History] amLODIPine [Norvasc] 10 mg PO DAILY 08/01/20 [History] lisinopriL 40 mg PO HS 08/01/20 [History] Cholecalciferol [Vitamin D3 (25 Mcg = 1000 Iu)] 125 mcg PO DAILY #0 tablet 08/06/20 [Rx] Dexamethasone [Decadron] 6 mg PO DAILY #5 tablet 08/06/20 [Rx] Follow up Appointment(s)/Referral(s): Viktoria Dietz MD [STAFF PHYSICIAN] - 09/03/20 1:15 pm KrisPhysician [Primary Care Provider] - 1-2 days Patient Instructions/Handouts: Coronavirus Disease 2019 (COVID-19) Activity/Diet/Wound Care/Special Instructions: Activity: as tolerated Diet: regular Discharge Disposition: HOME SELF-CARE
--- NOTE | 2020-08-06 16:44 | P.PN ---
Subjective Progress Note Date: 08/06/20 Principal diagnosis: CoVID 19 pneumonia 64-year-old male patient, known history of a COPD, known history of lung cancer and the patient is undergone a recent robotic-assisted right upper lobe resection at the [facility] details of the surgery is not available and the staging is not available and the type of lung cancer is not available at this point in time., came into the hospital after having a syncopal episode. He has been noted to feel sick over the past few days. He was having fatigue and diminished appetite. He was laying in bed all the time. His sister lives with him heard that he fell and EMS was activated. The patient was found to be unconscious for roughly 10 minutes. No seizure activity was noted. He did have a similar syncopal episode back in May 2018. No reported trauma to the head. He was brought into the hospital. Further testing showed that the patient had a positive COVID 19. . At time of arrival to the emergency, his BP was 97/74 and he was running a low-grade fever with a temperature 100.2 with a pulse of 70 and his pulse ox was 93%. He was further investigated with a CAT scan of the brain and cervical spine that showed no acute abnormalities. He had a chest x-ray that showed hyperinflation COPD and there was a left anterior chest pacemaker in place. CT angiogram showed no evidence of any pulmonary embolism. There is a right upper lobe postsurgical scarring in addition to some vague scattered groundglass pulmonary infiltrates bilaterally consistent with Covid 19 related pneumonia. He also had some mediastinal lymphadenopathy involving the mediastinum and the right hilar area. Apparently his cancer treatment was done through the [facility]. He is currently having a d-dimer of 3.45, his LDH level was 1044, his CRP level was 57. His pulse ox is 96% of these is approximately nasal cannula. He is currently on Decadron 6 mg IV. He is also placed on combination of vitamin C, vitamin D and zinc. IV fluids at 75 mL an hour. Note that the exact onset of his symptoms a lot. As the patient is very poor historian. It's likely the patient got his infection postop at the hospital. The patient is seen today 08/03/2020 in follow-up. He is a poor historian. He is currently on 3 L nasal cannula. Currently afebrile. This is day #2 of Remdesivir. He remains on Decadron and Lovenox. Remains on vitamin supplements. Blood cultures reveal no growth. White count 12.4. Hemoglobin 14.5. Lymphocytes 1.14. Sodium 136. Potassium 5.4. Creatinine 1.0. LDH 275. C-reactive protein 3.2. The patient is seen today 08/04/2020 in follow-up. Mando on 3 L nasal cannula with maintaining O2 saturation in the 90s. This is day #3 of his Remdesivir. He is doing quite a bit better. No worsening shortness of breath, cough or congestion. Echocardiogram reveals preserved left ventricular systolic function with ejection fraction of 55%. White count 12.7. Hemoglobin 14.2. Lymphocytes 1.0. Sodium 138. Potassium 5.5. Creatinine 1.0. He remains on Lovenox, Decadron, vitamin supplements. The patient is seen today 08/05/2020 in follow-up on the regular medical floor. He is currently sitting up in bed having dinner. Awake and alert in no acute distress. He is maintaining O2 saturation in the 90s on room air. He is doing quite a bit better. He is on day #4 of his Remdesivir. White count 11.2. Hemoglobin 15.4. Sodium 134. Potassium 5.3. Creatinine 0.9. LDH 579. D- dimer 0.98. Remains on Decadron, Lovenox, vitamin supplements. The patient is seen today 08/06/2020 in follow-up on the regular medical floor. He is sitting up in bed. Awake and alert in no acute distress. Maintaining O2 saturations in the 90s on room air. Chest x-ray is showing improvement. This was day #5 of his Remdesivir. Continued on Decadron, Lovenox, vitamin supplements. White count 11.9. Hemoglobin 15.3. Lymphocytes 0.8. Sodium 133. Potassium 4.9. Creatinine 0.88 Objective - Vital Signs Vital signs: Vital Signs Temp 97.5 F L 08/06/20 13:55 Pulse 67 08/06/20 13:55 Resp 16 08/06/20 13:55 BP 126/84 08/06/20 13:55 Pulse Ox 94 L 08/06/20 13:55 Intake & Output 08/05/20 08/06/20 08/06/20 18:59 06:59 18:59 Output Total 850 700 Balance -850 -700 Weight 76.657 kg Output: Urine 850 700 Other: Voiding Method Urinal # Voids 1 2 - Exam 64-year-old male patient, on room air and maintaining oxygen saturations above 90%, calm comfortable, awake and alert, very poor historian Head exam was generally normal. There was no scleral icterus or corneal arcus. Mucous membranes were moist. Neck was supple and without jugular venous distension, thyromegaly, or carotid bruits. Carotids were easily palpable bilaterally. There was no adenopathy. Lungs sounds are diminished and there is some scattered crackles in the lung bases bilaterally. Surgical site in right anterior upper chest areas dry clean and intact Cardiac exam revealed the PMI to be normally situated and sized. The rhythm was regular and no extrasystoles were noted during several minutes of auscultation. The first and second heart sounds were normal and physiologic splitting of the second heart sound was noted. There were no murmurs, rubs, clicks, or gallops. Abdominal exam revealed normal bowel sounds. The abdomen was soft, non-tender, and without masses, organomegaly, or appreciable enlargement of the abdominal aorta. Extremities revealed some chronic contracture of the right upper extremity probably related to an old brachial plexus fracture or injury. No cyanosis or clubbing and the rest of the extremities. Neurologically, the patient is awake and alert and the patient does not have any focal neurological deficit. Cranial nerves are essentially intact. Examination of the skin revealed no evidence of significant rashes, suspicious appearing nevi or other concerning lesions. - Labs CBC & Chem 7: 08/06/20 08:31 08/06/20 08:31 Labs: Abnormal Lab Results - Last 24 Hours (Table) 08/05/20 08/05/20 08/06/20 Range/Units 05:24 16:05 08:31 WBC 11.9 H (3.8-10.6) k/uL Neutrophils # 10.1 H (1.3-7.7) k/uL Lymphocytes # 0.8 L (1.0-4.8) k/uL Sodium 134 L (137-145) mmol/L Potassium 5.3 H (3.5-5.1) mmol/L BUN 24 H (9-20) mg/dL BUN/Creatinine Ratio 22.73 H (12.00-20.00) Ratio Glucose 139 H 245 H (70-110) mg/dL Lactate Dehydrogenase 268 H (120-246) U/L C-Reactive Protein 0.9 H (0.0-0.8) mg/dL Total Protein 6.0 L (6.3-8.2) g/dL Albumin 3.1 L (3.5-5.0) g/dL 08/06/20 Range/Units 08:31 WBC (3.8-10.6) k/uL Neutrophils # (1.3-7.7) k/uL Lymphocytes # (1.0-4.8) k/uL Sodium 133 L (137-145) mmol/L Potassium (3.5-5.1) mmol/L BUN 23 H (9-20) mg/dL BUN/Creatinine Ratio (12.00-20.00) Ratio Glucose 181 H (70-110) mg/dL Lactate Dehydrogenase (120-246) U/L C-Reactive Protein (0.0-0.8) mg/dL Total Protein (6.3-8.2) g/dL Albumin (3.5-5.0) g/dL Microbiology - Last 24 Hours (Table) 08/01/20 15:44 Blood Culture - Preliminary Blood No Growth after 96 hours 08/01/20 15:44 Blood Culture - Preliminary Blood No Growth after 96 hours Assessment and Plan Assessment: 1 acute Covid 19 related pneumonia. The patient is a very poor historian. The exact timing of symptom onset is not clear. The patient came in because of generalized weakness and fatigue and diminished appetite and weakness and had a bout of syncope. He tested positive for the CoVID 19 infection. He was in the [facility] when he underwent a right upper lobe resection for underlying lung cancer. Is likely that the patient could've contracted the virus in the hospital postop yet this is not certain. This is day #5 of Remdesivir. Remains on Lovenox, Decadron, vitamins. Chest x-ray showing improvement he is now on room air. 2 acute hypoxic respiratory failure , improved and on room air 3 low-grade fever, currently afebrile 4 COPD 5 history of lung cancer with a previous right upper lobe resection, this was done at the [facility] in [place]. Exact type and the staging of the lung cancer is not available to us at this point in time 6 syncope with a negative CAT scan of the head and neck 7 hypertension 8 hyperlipidemia 9 history of pacemaker insertion the exact cause is not clear 10 elevated inflammatory markers including LDH and CRP and mild elevation of the d-dimer. 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 Plan The patient was seen and evaluated by Dr. Dietz Currently stable from the pulmonary standpoint Stable and on room air Follow-up in the office in 3-4 weeks I, the cosigning physician, performed a history & physical examination of the patient. Lungs sounds with crackles in the bilateral posterior bases. Maintaining good O2 saturations in the 90s on room air.. I discussed the assessment and plan of care with my nurse practitioner, Clemencia Huntley. I attest to the above note as dictated by her.
== END 2020-08-06 15:40 | disposition home or self-care (01) | DRG 177 ==
LOC: EDBD → EC 14:19 → 4SSUR 18:24
PROVIDERS: ADMIT Internal Medicine; ATTEND Internal Medicine
PROC: XW033E5 Introduction of Remdesivir Anti-infective into Peripheral Vein, Percutaneous Approach, New Technology Group 5 (ICD-10-PCS; principal; 2020-08-02)
DX: U07.1 COVID-19 (principal); J12.82 Pneumonia due to coronavirus disease 2019; J96.01 Acute respiratory failure with hypoxia; E87.1 Hypo-osmolality and hyponatremia; C34.11 Malignant neoplasm of upper lobe, right bronchus or lung; J44.0 Chronic obstructive pulmonary disease with (acute) lower respiratory infection; E86.0 Dehydration; I95.1 Orthostatic hypotension; E78.5 Hyperlipidemia, unspecified; I10 Essential (primary) hypertension; E86.1 Hypovolemia; K76.9 Liver disease, unspecified; I44.0 Atrioventricular block, first degree; M62.441 Contracture of muscle, right hand; R59.0 Localized enlarged lymph nodes; Z87.891 Personal history of nicotine dependence; Z90.2 Acquired absence of lung [part of]; Z79.82 Long term (current) use of aspirin; Z79.899 Other long term (current) drug therapy; Z95.0 Presence of cardiac pacemaker
CPT/HCPCS: 36415; 70450; 71045; 71046; 71275; 72125; 80048; 80053; 82728; 83605; 83615; 83735; 84145; 85025; 85027; 85379; 85610; 85730; 86140; 87040; 87635; 93005; 93306; 94760; 96374; 99285